=== PATIENT | male | born 1965 | race Caucasian/White ===

== ENCOUNTER 2017-03-07 11:39 | Inpatient (IN) | payer BC ==
[~2017-03-07] VITALS: Ht 193 cm; Wt 137.5 kg
[2017-03-07] VITALS (9 sets, daily range): BP systolic 157–205; BP diastolic 90–97; PULSE 76–96; RESP 16–22; TEMP 97.9–98.9; O2SAT 93–100
[2017-03-07] MEDS ORDERED: SODIUM CHLOR 0.9% 1000 ML INJ 1,000 ML IV SCH ×2 (11:47→15:30)
[2017-03-07] MEDS ORDERED: LISI20TA PO (11:56)
[2017-03-07] MEDS ORDERED: MORPHINE SULFATE 8 MG/ML INJ ONE (11:58)
[2017-03-07] MEDS ORDERED: NEOSTIGMINE 3 MG/3 ML SYR IV ONE (12:00)
[2017-03-07] MEDS ORDERED: MORPHINE SULFATE 4 MG/ML INJ IV ONE (12:00)
[2017-03-07] MEDS ORDERED: DIPHTH/TETANUS/ACEL PERTUSSIS (BOOSTER) 0.5 ML VIAL/PFS IM ONE (12:00)
[2017-03-07] MEDS ORDERED: LACTATED RINGER'S 1000 ML INJ 1,000 ML IV ONE (12:00)
[2017-03-07] MEDS ORDERED: ONDANSETRON HCL 4 MG/2 ML VIAL IVP ONE (12:00)
[2017-03-07] MEDS ORDERED: PROPOFOL 200 MG/20 ML AMP IV ONE ×3 (12:00→12:45)
[2017-03-07] MEDS ORDERED: ONDANSETRON HCL 4 MG/2 ML VIAL IV PUSH ONE (12:00)
[2017-03-07] MEDS ORDERED: ceFAZolin 2 GM PREMIX 50 ML IV ONE (12:00)
[2017-03-07 12:05] LABS: AUTOMATED NEUTROPHIL # 5.6 TH/MM3 (1.8-7.7); BASOPHIL # 0.1 TH/MM3 (0-0.2); BASOPHIL % 0.9 % (0.0-2.0); EOSINOPHIL # 0.1 TH/MM3 (0-0.4); EOSINOPHIL % 0.8 % (0.0-4.0); HEMATOCRIT 44.2 % (39.0-51.0); HEMO FLAGS DIFF FINAL; LYMPH % 31.9 % (9.0-44.0); LYMPHOCYTE # 3.1 TH/MM3 (1.0-4.8); MEAN CELL VOLUME 91.8 FL (80.0-100.0); MEAN CORPUSCULAR HEMOGLOBIN 32.2 PG (27.0-34.0); MEAN CORPUSCULAR HGB CONC 35.1 % (32.0-36.0); MONO % 8.8 % (0.0-8.0); NEUT % 57.6 % (16.0-70.0); PLATELET COUNT 205 TH/MM3 (150-450); RED BLOOD COUNT 4.82 MIL/MM3 (4.50-5.90); RED CELL DISTRIBUTION WIDTH 13.3 % (11.6-17.2); WHITE BLOOD COUNT 9.8 TH/MM3 (4.0-11.0)
[2017-03-07 12:12] LABS: APTT (PATIENT) 21.6 SEC (24.3-30.1); PROTHROMBIN TIME - PATIENT 11.4 SEC (9.8-11.6)
[2017-03-07 12:28] LABS: I-STAT POTASSIUM 3.7 MMOL/L (3.5-4.9)
[2017-03-07] MEDS ORDERED: HYDROmorphone HCL PF 1 MG/ML VIAL IV PUSH ONE (12:30)
--- NOTE | 2017-03-07 12:38 | PD ---
HPI Chief Complaint: Fall Time Seen by Provider: 12:27 Travel History International Travel<30 days: No Contact w/Intl Traveler<30days: No Traveled to known affect area: No History of Present Illness HPI 51-year-old male that presents to the ED for evaluation of fall from a 12 foot ladder. Patient was brought here by ambulance. 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 Per patient she does not know why he landed on but he does have what appears to be an open fracture to his left proximal tib-fib as well as pain to his right chest and right shoulder. He was brought here by ambulance for evaluation of this. No LOC. Patient landed on tile. Patient had normal vitals and GCS of 15. She was given IV morphine and was put on the c-collar as well as some backboard and a splint for the left leg by ambulance before coming. Injury occurred less than an hour ago. Patient has no allergies to medication but first thing ago to see the patient he tells me that he does not want any blood products secondary to roman catholic beliefs. He states that his pain is severe especially on the left leg which is 10 out of 10. Even with morphine. Patient does have severe pain on the right chest as well as the right shoulder. He does have a history of high blood pressure. No other injuries reported. Patient does have a significant open fracture on the left leg as well as abrasions on the right leg as well as on the arms noted. PFSH Past Medical History Tetanus Vaccination: Unknown Influenza Vaccination: No Past Surgical History Tonsillectomy: Yes Social History Alcohol Use: Yes (moderate) Tobacco Use: No Substance Use: No Allergies-Medications (Allergen,Severity, Reaction): Uncoded Allergies: no blood (Allergy, Severe, no blood products, 03/07/17) Reported Meds & Prescriptions Reported Meds & Active Scripts Active Reported Lisinopril-Hctz 20-12.5 Mg Tab 1 Tab PO DAILY Review of Systems Except as stated in HPI: all other systems reviewed are Neg Physical Exam Narrative GENERAL: SKIN: Warm and dry. HEAD: Atraumatic. Normocephalic. EYES: Pupils equal and round. No scleral icterus. No injection or drainage. ENT: No nasal bleeding or discharge. Mucous membranes pink and moist. Tongue is midline. No uvula deviation. NECK: Trachea midline. No JVD. CARDIOVASCULAR: Regular rate and rhythm. No murmurs, S3, S4. RESPIRATORY: No accessory muscle use. Clear to auscultation. Breath sounds equal bilaterally. GASTROINTESTINAL: Abdomen soft, non-tender, nondistended. Hepatic and splenic margins not palpable. MUSCULOSKELETAL: Extremities without clubbing, cyanosis, or edema. No obvious deformities. Full range of motion of the left upper and right lower extremities bilaterally. 2+ pulses bilaterally. Patient does appear to have significant open fracture on the proximal aspect of the left knee. Bone is exposed. Minimal bleeding noted. Open wound is about 10 cm x 4 cm. Very tender to touch. Patient cannot extend the left leg without severe pain. Patient also has pain with range of motion of the right shoulder especially with abduction. Patient has reproducible pain on the right rib cage just below the nipple. No obvious bruising or deformity noted in this area. No lumbar, thoracic, cervical spine tenderness to palpation. No scapular pain noted. No pelvic bone pain. Patient was seen with a backboard and cervical collar. Was removed by me and my attending. My attending Dr. Campbell evaluated the patient with me at the same time. NEUROLOGICAL: Awake and alert. No obvious cranial nerve deficits. Motor grossly within normal limits. Five out of 5 muscle strength in the arms and legs. Normal speech. PSYCHIATRIC: Appropriate mood and affect; insight and judgment normal. Data Data Last Documented VS Vital Signs Date Time Temp Pulse Resp B/P Pulse Ox O2 Delivery O2 Flow Rate FiO2 03/07/17 14:15 88 14 164/97 99 03/07/17 13:40 Nasal Cannula 2 03/07/17 13:40 98.1 Orders Tibia/Fibula (Ap/Lat) (03/07/17 11:47) I-Stat Profile (03/07/17 11:47) I-Stat Creatinine (03/07/17 11:47) Complete Blood Count With Diff (03/07/17 11:47) Prothrombin Time / Inr (Pt) (03/07/17 11:47) Act Partial Throm Time (Ptt) (03/07/17 11:47) Type And Screen (03/07/17 11:47) Ct Brain W/O Iv Contrast(Rout) (03/07/17 11:47) Ct Cerv Spine W/O Contrast (03/07/17 11:47) Iv Access Insert/Monitor (03/07/17 11:47) Ecg Monitoring (03/07/17 11:47) Oximetry (03/07/17 11:47) Oxygen Administration (03/07/17 11:47) Cefazolin 2 Gm Premix (Ancef 2 Gm Premix (03/07/17 12:00) Morphine Inj (Morphine Inj) (03/07/17 12:00) Ondansetron Inj (Zofran Inj) (03/07/17 12:00) Nrsr-Khu-Xkzemk (Booster) Inj (Boostrix (03/07/17 12:00) Sodium Chlor 0.9% 1000 Ml Inj (Ns 1000 M (03/07/17 11:47) Ct Abd/Pel W Iv Contrast(Rout) (03/07/17 11:53) Ct Thorax/ Chest W Iv Contrast (03/07/17 11:54) Morphine Inj (Morphine Inj) (03/07/17 11:58) Hydromorphone Pf Inj (Dilaudid Pf Inj) (03/07/17 12:30) Shoulder, One View (03/07/17 ) Propofol 200 Mg/20 Ml Inj (Diprivan 200 (03/07/17 12:45) Splint Or Brace Apply/Monitor (03/07/17 12:39) Propofol 200 Mg/20 Ml Inj (Diprivan 200 (03/07/17 12:45) Tibia/Fibula (Ap/Lat) (03/07/17 ) Consult Orthopedic (03/07/17 ) NPO (03/07/17 13:12) Iohexol 350 Inj (Omnipaque 350 Inj) (03/07/17 13:31) Gentamicin Inj (Gentamicin Inj) (03/07/17 13:56) (Hub Use Only)Inp Phy Cons/Ref (03/07/17 14:28) Admit Order (Ed Use Only) (03/07/17 14:35) Labs Laboratory Tests Test 03/07/17 11:57 White Blood Count 9.8 TH/MM3 Red Blood Count 4.82 MIL/MM3 Hemoglobin 15.5 GM/DL Bedside Hemoglobin 15.3 G/DL Hematocrit 44.2 % Bedside Hematocrit 45.0 % Mean Corpuscular Volume 91.8 FL Mean Corpuscular Hemoglobin 32.2 PG Mean Corpuscular Hemoglobin 35.1 % Concent Red Cell Distribution Width 13.3 % Platelet Count 205 TH/MM3 Mean Platelet Volume 9.8 FL Neutrophils (%) (Auto) 57.6 % Lymphocytes (%) (Auto) 31.9 % Monocytes (%) (Auto) 8.8 % Eosinophils (%) (Auto) 0.8 % Basophils (%) (Auto) 0.9 % Neutrophils # (Auto) 5.6 TH/MM3 Lymphocytes # (Auto) 3.1 TH/MM3 Monocytes # (Auto) 0.9 TH/MM3 Eosinophils # (Auto) 0.1 TH/MM3 Basophils # (Auto) 0.1 TH/MM3 CBC Comment DIFF FINAL Differential Comment Prothrombin Time 11.4 SEC Prothromb Time International 1.0 RATIO Ratio Activated Partial 21.6 SEC Thromboplast Time Bedside Sodium 140 MMOL/L Bedside Potassium 3.7 MMOL/L Bedside Chloride 105 MMOL/L Bedside Blood Urea Nitrogen 16 MG/DL Bedside Creatinine 1.0 MG/DL Bedside Glucose 119 MG/DL Blood Type B POSITIVE Antibody Screen NEGATIVE MDM Medical Decision Making Medical Screen Exam Complete: Yes Emergency Medical Condition: Yes Medical Record Reviewed: Yes Interpretation(s) CBC & BMP Diagram 03/07/17 11:[address] 03/07/17 1154 Signed Impressions: Service Date/Time: Tuesday, March 07, 2017 13:20 - CONCLUSION: Left upper lobe nodule, repeat noncontrast chest CT is suggested in 6 months as a conservative follow up. Sandra Zamora MD Abdomen/Pelvis CT 03/07/17 1153 Signed Impressions: Service Date/Time: Tuesday, March 07, 2017 13:17 - CONCLUSION: Essentially unremarkable study. Sandra Zamora MD Tibia/Fibula X-Ray 03/07/17 1147 Signed Impressions: Service Date/Time: Tuesday, March 07, 2017 12:00 - CONCLUSION: Proximal fibula and tibia fractures. Sandra Zamora MD Head CT 03/07/17 1147 Signed Impressions: Service Date/Time: Tuesday, March 07, 2017 13:07 - CONCLUSION: No acute disease. No evidence of acute hemorrhage, edema or contusion. Unremarkable evaluation of the brain. Shyam Rey MD Cervical Spine CT 03/07/17 1147 Signed Impressions: Service Date/Time: Tuesday, March 07, 2017 13:12 - CONCLUSION: Slight neuroforaminal compromise left C5-C6, right C6-C7. K. Eligio Zamora MD Shoulder X-Ray 03/07/17 0000 Signed Impressions: Service Date/Time: Tuesday, March 07, 2017 12:12 - CONCLUSION: No acute disease. Shyam Rey MD Differential Diagnosis Trauma versus open fracture versus takes for fracture versus chest contusion versus head injury versus fall versus laceration versus abrasion versus contusion Narrative Course 51-year-old male that presents to the ED for evaluation of fall. Patient was properly examined and was found to have signs and symptoms very consistent what appears to be fall from 12 feet with open fracture on the left tib-fib. My attending Dr. Campbell and I evaluated the patient at the same time. She was made aware of all findings and she recommended doing trauma work up but no trauma alert as patient is stable at this time. She recommends multiple scans as well as labs and imaging. Labs and imaging were ordered. My attending took over case and spoke with Dr Browne for trauma and Dr Cruz for ortho. Dr Browne recommends admission to medicine. Dr Casiano consulted by my attending and agrees to admission. Diagnosis Primary Impression: Tibia/fibula fracture Qualified Code: S82.202C - Tibia/fibula fracture, left, open type III, initial encounter Additional Impressions: Fall Qualified Code: W19.XXXA - Fall, initial encounter Contusion of shoulder, right Chest wall contusion Qualified Code: S20.211A - Chest wall contusion, right, initial encounter Admitting Information Admitting Physician Requests: Admit Ajay Castrejon Mar 07, 2017 12:37
--- NOTE | 2017-03-07 12:55 | RADRPT ---
EXAM DATE/TIME: 03/07/2017 12:12 [facility] COMPARISON: No previous studies available for comparison. INDICATIONS : Right shoulder pain, Post fall off ladder MEDICAL HISTORY : None. SURGICAL HISTORY : None. ENCOUNTER: Initial ACUITY: 1 day PAIN SCORE: 10/10 LOCATION: Right upper extremity FINDINGS: Examination of the right shoulder demonstrates no evidence of fracture or dislocation.. Bone mineral ization is normal. The acromioclavicular joint is intact. No foreign body is identified. CONCLUSION: No acute disease. Shyam Rey MD on March 07, 2017 at 12:54 Board Certified Radiologist. This report was verified electronically.
--- NOTE | 2017-03-07 13:20 | RADRPT ---
EXAM DATE/TIME: 03/07/2017 12:00 [facility] COMPARISON: No previous studies available for comparison. INDICATIONS : Left tibia/fibula pain and open wound. Fell from a ladder. MEDICAL HISTORY : Unobtainable. SURGICAL HISTORY : Unobtainable. ENCOUNTER: Initial ACUITY: 1 day PAIN SCORE: 10/10 LOCATION: Left tibia/fibula FINDINGS: There is a complex fracture involving the tibia proximally extending from the metaphysis through the tibia plateau intra-articular with gas bubbles within the joint space. There is also a fracture of pr oximal fibula. CONCLUSION: Proximal fibula and tibia fractures. Sandra Zamora MD on March 07, 2017 at 13:17 Board Certified Radiologist. This report was verified electronically.
[2017-03-07] MEDS ORDERED: IOHEXOL 350 MG/ML 10 ML VIAL (for RAD DIAG) IV ONE (13:31)
--- NOTE | 2017-03-07 13:32 | RADRPT ---
EXAM DATE/TIME: 03/07/2017 13:07 [facility] COMPARISON: No previous studies available for comparison. INDICATIONS : Trauma, fall from a twelve foot ladder today. RADIATION DOSE: 56.35 CTDIvol (mGy) MEDICAL HISTORY : None SURGICAL HISTORY : Tonsillectomy. ENCOUNTER: Initial ACUITY: 1 day PAIN SCALE: 3/10 LOCATION: Bilateral head TECHNIQUE: Multiple contiguous axial images were obtained of the head. Using automated exposure control and adj ustment of the mA and/or kV according to patient size, radiation dose was kept as low as reasonably a chievable to obtain optimal diagnostic quality images. DICOM format image data is available electro nically for review and comparison. FINDINGS: CEREBRUM: The ventricles are normal for age. No evidence of midline shift, mass lesion, hemorrhage or acute in farction. No extra-axial fluid collections are seen. POSTERIOR FOSSA: The cerebellum and brainstem are intact. The 4th ventricle is midline. The cerebellopontine angle i s unremarkable. EXTRACRANIAL: The visualized portion of the orbits is intact. SKULL: The calvaria is intact. No evidence of skull fracture. CONCLUSION: No acute disease. No evidence of acute hemorrhage, edema or contusion. Unremarkable evaluation of the brain. Shyam Rey MD on March 07, 2017 at 13:28 Board Certified Radiologist. This report was verified electronically.
[2017-03-07] MEDS ORDERED: GENTAMICIN SULFATE 80 MG/2 ML VIAL ONE ×3 (13:56→16:04)
--- NOTE | 2017-03-07 14:03 | RADRPT ---
EXAM DATE/TIME: 03/07/2017 13:12 [facility] COMPARISON: No previous studies available for comparison. INDICATIONS : Trauma, fall from a twelve foot ladder today. RADIATION DOSE: 46.86 CTDIvol (mGy) MEDICAL HISTORY : None SURGICAL HISTORY : Tonsillectomy. ENCOUNTER: Initial ACUITY: 1 day PAIN SCALE: 7/10 LOCATION: Bilateral neck TECHNIQUE: Volumetric scanning of the cervical spine was performed. Multiplanar reconstructions in the sagittal, coronal and oblique axial planes were performed. Using automated exposure control and adjustment o f the mA and/or kV according to patient size, radiation dose was kept as low as reasonably achievable to obtain optimal diagnostic quality images. DICOM format image data is available electronically f or review and comparison. FINDINGS: No evidence of subluxation. No definite fracture is seen for technique. C2-C3: There is no evidence for any significant compromise to the thecal sac, or the exiting nerve roots. N o appreciable thecal sac stenosis is seen. The neural foramina and lateral recess appear patent bila terally. C3-C4: There is no evidence for any significant compromise to the thecal sac, or the exiting nerve roots. N o appreciable thecal sac stenosis is seen. The neural foramina and lateral recess appear patent bila terally. C4-C5: Slight degenarative changes are seen within the disc space and facets. There is no evidence for any s ignificant compromise to the thecal sac, or the exiting nerve roots. No appreciable thecal sac steno sis is seen. The neural foramina and lateral recess appear patent bilaterally. C5-C6: Moderate degenarative changes are seen within the disc space and facets. There is slight neural sarah romie compromise on the left due to asymmetrical bulging disc and hypertrophic changes. There is bulgin g disc and hypertrophic change protruding into bilateral lateral recess without any significant compr omise to the exiting nerve roots. Slight bulging disc and hypertrophic changes are seen with indentat ion on the thecal sac and no significant compromise to the thecal sac. C6-C7: There is bulging disc and hypertrophic change protruding into bilateral lateral recess without any si gnificant compromise to the exiting nerve roots. There is slight neural foramina compromise on the ri ght due to asymmetrical bulging disc and hypertrophic changes. Moderate degenarative changes are seen within the disc space and facets. Slight bulging disc and hypertrophic changes are seen with indenta tion on the thecal sac and no significant compromise to the thecal sac. C7-T1: There is no evidence for any significant compromise to the thecal sac, or the exiting nerve roots. N o appreciable thecal sac stenosis is seen. The neural foramina and lateral recess appear patent bila terally. CONCLUSION: Slight neuroforaminal compromise left C5-C6, right C6-C7. K. Eligio Zamora MD on March 07, 2017 at 13:56 Board Certified Radiologist. This report was verified electronically.
--- NOTE | 2017-03-07 14:07 | RADRPT ---
EXAM DATE/TIME: 03/07/2017 13:17 [facility] COMPARISON: No previous studies available for comparison. INDICATIONS : Trauma, fall from a twelve foot ladder today. IV CONTRAST: 95 cc Omnipaque 350 (iohexol) IV ; Cumulative dose for multiple exams. ORAL CONTRAST: No oral contrast ingested. RADIATION DOSE: 14.45 CTDIvol (mGy) ; Combined studies - Thorax/Abdomen/Pelvis MEDICAL HISTORY : None SURGICAL HISTORY : Tonsillectomy. ENCOUNTER: Initial ACUITY: 1 day PAIN SCALE: 0/10 LOCATION: abdomen TECHNIQUE: Volumetric scanning of the abdomen and pelvis was performed. Using automated exposure control and ad justment of the mA and/or kV according to patient size, radiation dose was kept as low as reasonably achievable to obtain optimal diagnostic quality images. DICOM format image data is available electro nically for review and comparison. FINDINGS: CT Abdomen: The liver, spleen, pancreas, kidneys, adrenals are unremarkable. There is no evidence for any appreciable pathological adenopathy, free fluid, or bowel obstruction. CT pelvis: There is no evidence for mass, abscess formation, or any significant adenopathy within the pelvis. The prostate gland is inhomogeneous and measures 3.5 x 3.8 cm in AP and transverse diameters and nonspecific. There are scattered diverticuli mainly in the sigmoid colon without definite signs of diverticulitis. No definite fracture is seen for technique. CONCLUSION: Essentially unremarkable study. Sandra Zamora MD on March 07, 2017 at 14:02 Board Certified Radiologist. This report was verified electronically.
--- NOTE | 2017-03-07 14:11 | RADRPT ---
EXAM DATE/TIME: 03/07/2017 13:20 [facility] COMPARISON: No previous studies available for comparison. INDICATIONS : Fall from ladder IV CONTRAST: 95 cc Omnipaque 350 (iohexol) IV ; Cumulative dose for multiple exams. RADIATION DOSE: 14.54 CTDIvol (mGy) ; Combined studies - Thorax/Abdomen/Pelvis MEDICAL HISTORY : None SURGICAL HISTORY : None. ENCOUNTER: Initial ACUITY: 1 day PAIN SCALE: 0/10 LOCATION: chest TECHNIQUE: Volumetric scanning of the chest was performed. Using automated exposure control and adjustment of t he mA and/or kV according to patient size, radiation dose was kept as low as reasonably achievable to obtain optimal diagnostic quality images. DICOM format image data is available electronically for review and comparison. Follow-up recommendations for incidentally detected pulmonary nodules are based at a minimum on nodul e size and patient risk factors according to Fleischner Society Guidelines. FINDINGS: Approximately 6 mm left upper lobe nodule is present in the apex without demonstrable calcifications. No definite fracture is seen for technique. No definite pneumothorax is seen for technique.There is no pleural effusion. No appreciable pathological adenopathy is seen within the mediastinum. CONCLUSION: Left upper lobe nodule, repeat noncontrast chest CT is suggested in 6 months as a con servative follow up. Sandra Zamora MD on March 07, 2017 at 14:06 Board Certified Radiologist. This report was verified electronically.
--- NOTE | 2017-03-07 14:29 | RADRPT ---
EXAM DATE/TIME: 03/07/2017 13:31 [facility] COMPARISON: No previous studies available for comparison. INDICATIONS : Post reduction left tibia/fibula. MEDICAL HISTORY : None. SURGICAL HISTORY : None. ENCOUNTER: Initial ACUITY: 1 day PAIN SCORE: 10/10 LOCATION: Left tibia/fibula FINDINGS: Intra-articular fracture is seen involving the lateral tibial plateau and mid tibial plateau through the anterior tibial spine. The fracture fragments are slightly displaced, however grossly aligned. Th ere is also fracture of the proximal fibula. CONCLUSION: Gross anatomical alignment of intra-articular tibial fracture and there is also a fracture of proxima l fibula. Sandra Zamora MD on March 07, 2017 at 14:27 Board Certified Radiologist. This report was verified electronically.
--- NOTE | 2017-03-07 14:41 | PD ---
Data Data Last Documented VS Vital Signs Date Time Temp Pulse Resp B/P Pulse Ox O2 Delivery O2 Flow Rate FiO2 03/07/17 14:15 88 14 164/97 99 03/07/17 13:40 Nasal Cannula 2 03/07/17 13:40 98.1 Orders Tibia/Fibula (Ap/Lat) (03/07/17 11:47) I-Stat Profile (03/07/17 11:47) I-Stat Creatinine (03/07/17 11:47) Complete Blood Count With Diff (03/07/17 11:47) Prothrombin Time / Inr (Pt) (03/07/17 11:47) Act Partial Throm Time (Ptt) (03/07/17 11:47) Type And Screen (03/07/17 11:47) Ct Brain W/O Iv Contrast(Rout) (03/07/17 11:47) Ct Cerv Spine W/O Contrast (03/07/17 11:47) Iv Access Insert/Monitor (03/07/17 11:47) Ecg Monitoring (03/07/17 11:47) Oximetry (03/07/17 11:47) Oxygen Administration (03/07/17 11:47) Cefazolin 2 Gm Premix (Ancef 2 Gm Premix (03/07/17 12:00) Morphine Inj (Morphine Inj) (03/07/17 12:00) Ondansetron Inj (Zofran Inj) (03/07/17 12:00) Nlit-Dxw-Xtlfym (Booster) Inj (Boostrix (03/07/17 12:00) Sodium Chlor 0.9% 1000 Ml Inj (Ns 1000 M (03/07/17 11:47) Ct Abd/Pel W Iv Contrast(Rout) (03/07/17 11:53) Ct Thorax/ Chest W Iv Contrast (03/07/17 11:54) Morphine Inj (Morphine Inj) (03/07/17 11:58) Hydromorphone Pf Inj (Dilaudid Pf Inj) (03/07/17 12:30) Shoulder, One View (03/07/17 ) Propofol 200 Mg/20 Ml Inj (Diprivan 200 (03/07/17 12:45) Splint Or Brace Apply/Monitor (03/07/17 12:39) Propofol 200 Mg/20 Ml Inj (Diprivan 200 (03/07/17 12:45) Tibia/Fibula (Ap/Lat) (03/07/17 ) Consult Orthopedic (03/07/17 ) NPO (03/07/17 13:12) Iohexol 350 Inj (Omnipaque 350 Inj) (03/07/17 13:31) Gentamicin Inj (Gentamicin Inj) (03/07/17 13:56) (Hub Use Only)Inp Phy Cons/Ref (03/07/17 14:28) Admit Order (Ed Use Only) (03/07/17 14:35) Labs Laboratory Tests Test 03/07/17 11:57 White Blood Count 9.8 TH/MM3 Red Blood Count 4.82 MIL/MM3 Hemoglobin 15.5 GM/DL Bedside Hemoglobin 15.3 G/DL Hematocrit 44.2 % Bedside Hematocrit 45.0 % Mean Corpuscular Volume 91.8 FL Mean Corpuscular Hemoglobin 32.2 PG Mean Corpuscular Hemoglobin 35.1 % Concent Red Cell Distribution Width 13.3 % Platelet Count 205 TH/MM3 Mean Platelet Volume 9.8 FL Neutrophils (%) (Auto) 57.6 % Lymphocytes (%) (Auto) 31.9 % Monocytes (%) (Auto) 8.8 % Eosinophils (%) (Auto) 0.8 % Basophils (%) (Auto) 0.9 % Neutrophils # (Auto) 5.6 TH/MM3 Lymphocytes # (Auto) 3.1 TH/MM3 Monocytes # (Auto) 0.9 TH/MM3 Eosinophils # (Auto) 0.1 TH/MM3 Basophils # (Auto) 0.1 TH/MM3 CBC Comment DIFF FINAL Differential Comment Prothrombin Time 11.4 SEC Prothromb Time International 1.0 RATIO Ratio Activated Partial 21.6 SEC Thromboplast Time Bedside Sodium 140 MMOL/L Bedside Potassium 3.7 MMOL/L Bedside Chloride 105 MMOL/L Bedside Blood Urea Nitrogen 16 MG/DL Bedside Creatinine 1.0 MG/DL Bedside Glucose 119 MG/DL Blood Type B POSITIVE Antibody Screen NEGATIVE [facility] Medical Record Reviewed: Yes Supervised Visit with RIKKI: Yes Interpretation(s) Vital Signs Date Time Temp Pulse Resp B/P Pulse Ox O2 Delivery O2 Flow Rate FiO2 03/07/17 14:15 88 14 164/97 99 03/07/17 14:00 84 14 176/91 100 03/07/17 13:40 Nasal Cannula 2 03/07/17 13:40 98.1 80 14 172/98 98 03/07/17 13:17 78 18 162/93 98 Nasal Cannula 3 03/07/17 13:09 97.9 82 18 157/90 100 Nasal Cannula 3 03/07/17 13:00 76 18 170/95 99 Nasal Cannula 3 03/07/17 12:50 80 22 201/95 100 Nasal Cannula 3 03/07/17 12:49 99 3.00 03/07/17 12:49 99 03/07/17 12:35 96 20 205/97 100 Nasal Cannula 3 03/07/17 12:00 81 22 194/95 96 Room Air Laboratory Tests Test 03/07/17 11:57 White Blood Count 9.8 TH/MM3 (4.0-11.0) Red Blood Count 4.82 MIL/MM3 (4.50-5.90) Hemoglobin 15.5 GM/DL (13.0-17.0) Bedside Hemoglobin 15.3 G/DL (12.0-17.0) Hematocrit 44.2 % (39.0-51.0) Bedside Hematocrit 45.0 % (38.0-51.0) Mean Corpuscular Volume 91.8 FL (80.0-100.0) Mean Corpuscular Hemoglobin 32.2 PG (27.0-34.0) Mean Corpuscular Hemoglobin 35.1 % Concent (32.0-36.0) Red Cell Distribution Width 13.3 % (11.6-17.2) Platelet Count 205 TH/MM3 (150-450) Mean Platelet Volume 9.8 FL (7.0-11.0) Neutrophils (%) (Auto) 57.6 % (16.0-70.0) Lymphocytes (%) (Auto) 31.9 % (9.0-44.0) Monocytes (%) (Auto) 8.8 % (0.0-8.0) Eosinophils (%) (Auto) 0.8 % (0.0-4.0) Basophils (%) (Auto) 0.9 % (0.0-2.0) Neutrophils # (Auto) 5.6 TH/MM3 (1.8-7.7) Lymphocytes # (Auto) 3.1 TH/MM3 (1.0-4.8) Monocytes # (Auto) 0.9 TH/MM3 (0-0.9) Eosinophils # (Auto) 0.1 TH/MM3 (0-0.4) Basophils # (Auto) 0.1 TH/MM3 (0-0.2) CBC Comment DIFF FINAL Differential Comment Prothrombin Time 11.4 SEC (9.8-11.6) Prothromb Time International 1.0 RATIO Ratio Activated Partial 21.6 SEC Thromboplast Time (24.3-30.1) Bedside Sodium 140 MMOL/L (138-146) Bedside Potassium 3.7 MMOL/L (3.5-4.9) Bedside Chloride 105 MMOL/L (98-109) Bedside Blood Urea Nitrogen 16 MG/DL (8-26) Bedside Creatinine 1.0 MG/DL (0.8-1.3) Bedside Glucose 119 MG/DL (60-95) Blood Type B POSITIVE Antibody Screen NEGATIVE Last Impressions Chest CT 03/07/17 1154 Signed Impressions: Service Date/Time: Tuesday, March 07, 2017 13:20 - CONCLUSION: Left upper lobe nodule, repeat noncontrast chest CT is suggested in 6 months as a conservative follow up. Sandra Zamora MD Abdomen/Pelvis CT 03/07/17 1153 Signed Impressions: Service Date/Time: Tuesday, March 07, 2017 13:17 - CONCLUSION: Essentially unremarkable study. Sandra Zamora MD Tibia/Fibula X-Ray 03/07/17 1147 Signed Impressions: Service Date/Time: Tuesday, March 07, 2017 12:00 - CONCLUSION: Proximal fibula and tibia fractures. Sandra Zamora MD Head CT 03/07/17 1147 Signed Impressions: Service Date/Time: Tuesday, March 07, 2017 13:07 - CONCLUSION: No acute disease. No evidence of acute hemorrhage, edema or contusion. Unremarkable evaluation of the brain. Shyam Rey MD Cervical Spine CT 03/07/17 1147 Signed Impressions: Service Date/Time: Tuesday, March 07, 2017 13:12 - CONCLUSION: Slight neuroforaminal compromise left C5-C6, right C6-C7. Sandra Zamora MD Tibia/Fibula X-Ray 03/07/17 0000 Signed Impressions: Service Date/Time: Tuesday, March 07, 2017 13:31 - CONCLUSION: Gross anatomical alignment of intra-articular tibial fracture and there is also a fracture of proximal fibula. Sandra Zamora MD Shoulder X-Ray 03/07/17 0000 Signed Impressions: Service Date/Time: Tuesday, March 07, 2017 12:12 - CONCLUSION: No acute disease. Shyam Rey MD Narrative Course I, Dr. Campbell, have reviewed the advance practice practitioner's documentation and am in agreement, met with the patient face to face, made the diagnosis, and the medical decision making was done by me. *My assessment and Findings: Open left sided tib-fib fracture. Patient is a 51-year-old male who presents to emergency room after he fell 12 foot from a ladder. Patient reports that the ladder slid against the wall causing him to fall on the ground and landing on his left side. He presents to emergency room with left-sided open tib-fib fracture. Patient denies any trauma to the head or neck, denies any loss of consciousness on scene. Patient reports no allergies to medications, reports no medical problems. Patient did arrive to ER on backboard with collar in place. GCS 15. Patient was given ancef and tetanus. He did have trauma scans obtained after he was stabilized. Conscious sedation was performed to utilized to reduce left tib-fib and to irrigate wound. Call was made to Dr. Cruz as patient does have open tib/fib fx. Patient was admitted to Dr. Peterson's service Critical Care Narrative Aggregate critical care time was 60 minutes. Time to perform other separately billable procedures was not included in the critical care time. My time did not include minutes spent treating any other patients simultaneously or on activities that did not directly contribute to the patient's treatment. The services I provided to this patient were to treat and/or prevent clinically significant deterioration that could result in: , decompensation, deterioration I provided critical care services requiring my management, as noted below: Chart data review, documentation time, medication orders and management, vital sign assessments/reviewing monitor data, ordering and reviewing lab tests, ordering and interpreting/reviewing x-rays and diagnostic studies, care of the patient and discussion of the patient with the admitting physicians. Procedures Procedure Narrative After the risks and benefits were discussed the following procedure was performed: MODERATE SEDATION: The patient was placed on a science consultant and pulse oximetry. An ambu bag and suction was immediately available at bedside. The patient was monitored by the nurse. Oxygen saturation , heart rate and blood pressure were monitored. Procedural sedation was acheived using 100mg of propofol . The patient was observed until awake and alert. Procedural Sedation time in attendance was 25 minutes. Left tib/fib reduction: After informed consent obtained, risks and benefits were discussed with patient. After patient was sedated, left leg proximal tib/fib reduced using traction. Wound was irrigated copiously with betadine and normal saline. Splint placed Physician Communication Physician Communication case reviewed with Dr. Zaman who accepts pt to service Dr. Cruz will bring patient to the OR for his open tib/fib fx Diagnosis Primary Impression: Tibia/fibula fracture Qualified Code: S82.202C - Tibia/fibula fracture, left, open type III, initial encounter Admitting Information Admitting Physician Requests: Neelam Bowers DO Mar 07, 2017 14:41
[2017-03-07] MEDS ORDERED: ceFAZolin INJ 1,000 MG VIAL ONE (15:10)
[2017-03-07] MEDS ORDERED: NALOXONE HCL 0.4 MG/ML AMP IV PRN ×2 (15:15→19:45)
[2017-03-07] MEDS ORDERED: ACETAMINOPHEN 325 MG TAB PO PRN ×2 (15:15→19:45)
[2017-03-07] MEDS ORDERED: MAGNESIUM HYDROXIDE SUSP 30 ML CUP PO PRN ×2 (15:15→19:45)
[2017-03-07] MEDS ORDERED: SENNOSIDES 8.6 MG TAB PO PRN ×2 (15:15→19:45)
[2017-03-07] MEDS ORDERED: LACTULOSE SYRUP 20 GM/30 ML CUP PO PRN ×2 (15:15→19:45)
[2017-03-07] MEDS ORDERED: BISACODYL 10 MG SUPP RECTAL PRN ×2 (15:15→19:45)
[2017-03-07] MEDS ORDERED: SODIUM CHLORIDE 0.9% FLUSH 10 ML FLUSH IV FLUSH PRN ×2 (15:15→19:45)
[2017-03-07] MEDS ORDERED: ONDANSETRON HCL 4 MG/2 ML VIAL IVP PRN ×2 (15:15→19:45)
--- NOTE | 2017-03-07 15:18 | HHI.HP ---
[facility] Service [place] [facility] Primary Care Physician Hebert Reddy MD Admission Diagnosis Open Tib/Fib Fracture Diagnoses: Travel History International Travel<30 Days: No Contact w/Intl Traveler <30 Da: No Traveled to Known Affected Are: No Past Family Social History Allergies: Uncoded Allergies: no blood (Allergy, Severe, no blood products, 03/07/17) Physical Exam Vital Signs Vital Signs Date Time Temp Pulse Resp B/P Pulse Ox O2 Delivery O2 Flow Rate FiO2 03/07/17 15:03 95 14 155/94 99 03/07/17 14:15 88 14 164/97 99 03/07/17 14:00 84 14 176/91 100 03/07/17 13:40 Nasal Cannula 2 03/07/17 13:40 98.1 80 14 172/98 98 03/07/17 13:17 78 18 162/93 98 Nasal Cannula 3 03/07/17 13:09 97.9 82 18 157/90 100 Nasal Cannula 3 03/07/17 13:00 76 18 170/95 99 Nasal Cannula 3 03/07/17 12:50 80 22 201/95 100 Nasal Cannula 3 03/07/17 12:35 96 20 205/97 100 Nasal Cannula 3 03/07/17 12:00 81 22 194/95 96 Room Air Physical Exam GENERAL: This is a well-nourished, well-developed patient, in no apparent distress. SKIN: No rashes, ecchymoses or lesions. Cool and dry. HEAD: Atraumatic. Normocephalic. No temporal or scalp tenderness. EYES: Pupils equal round and reactive. Extraocular motions intact. No scleral icterus. No injection or drainage. ENT: Nose without bleeding, purulent drainage or septal hematoma. Throat without erythema, tonsillar hypertrophy or exudate. Uvula midline. Airway patent. NECK: Trachea midline. No JVD or lymphadenopathy. Supple, nontender, no meningeal signs. CARDIOVASCULAR: Regular rate and rhythm without murmurs, gallops, or rubs. RESPIRATORY: Clear to auscultation. Breath sounds equal bilaterally. No wheezes , rales, or rhonchi. GASTROINTESTINAL: Abdomen soft, non-tender, nondistended. No hepato-splenomegaly , or palpable masses. No guarding. MUSCULOSKELETAL: Extremities without clubbing, cyanosis, or edema. No joint tenderness, effusion, or edema noted. No calf tenderness. Negative Homans sign bilaterally. NEUROLOGICAL: Awake and alert. Cranial nerves II through XII intact. Motor and sensory grossly within normal limits. Five out of 5 muscle strength in all muscle groups. Normal speech. Laboratory Laboratory Tests Test 03/07/17 11:57 White Blood Count 9.8 Red Blood Count 4.82 Hemoglobin 15.5 Bedside Hemoglobin 15.3 Hematocrit 44.2 Bedside Hematocrit 45.0 Mean Corpuscular Volume 91.8 Mean Corpuscular Hemoglobin 32.2 Mean Corpuscular Hemoglobin 35.1 Concent Red Cell Distribution Width 13.3 Platelet Count 205 Mean Platelet Volume 9.8 Neutrophils (%) (Auto) 57.6 Lymphocytes (%) (Auto) 31.9 Monocytes (%) (Auto) 8.8 Eosinophils (%) (Auto) 0.8 Basophils (%) (Auto) 0.9 Neutrophils # (Auto) 5.6 Lymphocytes # (Auto) 3.1 Monocytes # (Auto) 0.9 Eosinophils # (Auto) 0.1 Basophils # (Auto) 0.1 CBC Comment DIFF FINAL Differential Comment Prothrombin Time 11.4 Prothromb Time International 1.0 Ratio Activated Partial 21.6 Thromboplast Time Bedside Sodium 140 Bedside Potassium 3.7 Bedside Chloride 105 Bedside Blood Urea Nitrogen 16 Bedside Creatinine 1.0 Bedside Glucose 119 Blood Type B POSITIVE Antibody Screen NEGATIVE Result Diagram: 03/07/17 1157 Kalpesh Casiano MD Mar 07, 2017 15:18
[2017-03-07] MEDS ORDERED: HEPARIN SODIUM - SQ 10,000 UNITS/ML VIAL SQ SCH (16:00)
--- NOTE | 2017-03-07 19:11 | RADRPT ---
EXAM DATE/TIME: 03/07/2017 18:41 [facility] COMPARISON: TIBIA/FIBULA LEFT (AP/LAT), March 07, 2017, 13:31. INDICATIONS : Open reduction internal fixation of proximal tibia. MEDICAL HISTORY : None. SURGICAL HISTORY : None. ENCOUNTER: Subsequent ACUITY: 1 day PAIN SCORE: Non-responsive. LOCATION: Left knee. FINDINGS: Side plate and multiple screws traverse the tibia with excellent anatomical alignment of the fracture fragments. CONCLUSION: Intact postsurgical changes for technique. Sandra Zamora MD on March 07, 2017 at 19:09 Board Certified Radiologist. This report was verified electronically.
--- NOTE | 2017-03-07 19:28 | PD.CONS ---
cc: Adrien Cruz MD HPI Service Orthopedic Surgeons Consult Requested By ER staff Reason for Consult Open proximal tibia and fibula fractures Primary Care Physician Hebert Reddy MD Admission Diagnosis Open Tib/Fib Fracture Diagnoses: (1) Type III open fracture of proximal end of left tibia and fibula Chief Complaint: Left leg injury after fall from ladder History of Present Illness This 51-year-old male injured his left lower extremity while painting on a ladder. He states he ladder slipped and he went to the ground with it. He is unable to describe the exact mechanism of his left lower extremity injury. He had immediate pain, deformity and an open injury over the proximal lower leg. He presented to [facility]. X-rays revealed a fracture of the proximal tibia with an associated fibula fracture. There was significant displacement. He had a 10 cm wound over the fracture anteriorly consistent with a grade 3 open injury. Orthopedic consultation was therefore requested. Review of Systems Reviewed and well outlined in the chart Past Family Social History Past Medical History Past Medical History Tetanus Vaccination: Unknown Influenza Vaccination: No Hypertension Hyperlipidemia Past Surgical History Tonsillectomy: Yes Right wrist and knee surgery, ankle surgery Social History Alcohol Use: Yes (moderate) Tobacco Use: No Substance Use: No Allergies-Medications (Allergen,Severity, Reaction): Uncoded Allergies: no blood (Allergy, Severe, no blood products, 03/07/17) Reported Meds & Prescriptions Reported Meds & Active Scripts Active Reported Lisinopril-Hctz 20-12.5 Mg Tab 1 Tab PO DAILY Allergies: Uncoded Allergies: no blood (Allergy, Severe, no blood products, 03/07/17) Active Ordered Medications Current Medications Medications (Trade) Dose Ordered Sig/Jason Route Start Time Stop Time Status Last Admin (NS 1000 ml Inj) 1,000 ml @ 100 mls/hr Q10H IV 03/07/17 15:30 (NS Flush) 2 ml UNSCH PRN IV FLUSH 03/07/17 15:15 (NS Flush) 2 ml BID IV FLUSH 03/07/17 21:00 (Tylenol) 650 mg Q4H PRN PO 03/07/17 15:15 (Zofran Inj) 4 mg Q6H PRN IVP 03/07/17 15:15 (Heparin Inj) 5,000 units Q12H SQ 03/07/17 16:00 (Narcan Inj) 0.4 mg UNSCH PRN IV 03/07/17 15:15 (Almita-Colace) 1 tab BID PO 03/07/17 21:00 (Milk Of Magnesia Liq) 30 ml Q12H PRN PO 03/07/17 15:15 (Senokot) 17.2 mg Q12H PRN PO 03/07/17 15:15 (Dulcolax Supp) 10 mg DAILY PRN RECTAL 03/07/17 15:15 (Lactulose Liq) 30 ml DAILY PRN PO 03/07/17 15:15 Reported Meds & Active Scripts Active Reported Lisinopril-Hctz 20-12.5 Mg Tab 1 Tab PO DAILY Family History Noncontributory Social History The patient denies tobacco use. He uses alcohol moderately. 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 Physical Exam Vital Signs Vital Signs Date Time Temp Pulse Resp B/P Pulse Ox O2 Delivery O2 Flow Rate FiO2 03/07/17 15:03 95 14 155/94 99 03/07/17 14:15 88 14 164/97 99 03/07/17 14:00 84 14 176/91 100 03/07/17 13:40 Nasal Cannula 2 03/07/17 13:40 98.1 80 14 172/98 98 03/07/17 13:17 78 18 162/93 98 Nasal Cannula 3 03/07/17 13:09 97.9 82 18 157/90 100 Nasal Cannula 3 03/07/17 13:00 76 18 170/95 99 Nasal Cannula 3 03/07/17 12:50 80 22 201/95 100 Nasal Cannula 3 03/07/17 12:49 99 3.00 03/07/17 12:49 99 03/07/17 12:35 96 20 205/97 100 Nasal Cannula 3 03/07/17 12:00 81 22 194/95 96 Room Air Laboratory Laboratory Tests Test 03/07/17 11:57 White Blood Count 9.8 Red Blood Count 4.82 Hemoglobin 15.5 Bedside Hemoglobin 15.3 Hematocrit 44.2 Bedside Hematocrit 45.0 Mean Corpuscular Volume 91.8 Mean Corpuscular Hemoglobin 32.2 Mean Corpuscular Hemoglobin 35.1 Concent Red Cell Distribution Width 13.3 Platelet Count 205 Mean Platelet Volume 9.8 Neutrophils (%) (Auto) 57.6 Lymphocytes (%) (Auto) 31.9 Monocytes (%) (Auto) 8.8 Eosinophils (%) (Auto) 0.8 Basophils (%) (Auto) 0.9 Neutrophils # (Auto) 5.6 Lymphocytes # (Auto) 3.1 Monocytes # (Auto) 0.9 Eosinophils # (Auto) 0.1 Basophils # (Auto) 0.1 CBC Comment DIFF FINAL Differential Comment Prothrombin Time 11.4 Prothromb Time International 1.0 Ratio Activated Partial 21.6 Thromboplast Time Bedside Sodium 140 Bedside Potassium 3.7 Bedside Chloride 105 Bedside Blood Urea Nitrogen 16 Bedside Creatinine 1.0 Bedside Glucose 119 Ethyl Alcohol Level LESS THAN 3 Blood Type B POSITIVE Antibody Screen NEGATIVE Result Diagram: 03/07/17 1157 Imaging Last [address] 03/07/17 1154 Signed Impressions: Service Date/Time: Tuesday, March 07, 2017 13:20 - CONCLUSION: Left upper lobe nodule, repeat noncontrast chest CT is suggested in 6 months as a conservative follow up. Sandra Zamora MD Abdomen/Pelvis CT 03/07/17 1153 Signed Impressions: Service Date/Time: Tuesday, March 07, 2017 13:17 - CONCLUSION: Essentially unremarkable study. Sandra Zamora MD Tibia/Fibula X-Ray 03/07/17 1147 Signed Impressions: Service Date/Time: Tuesday, March 07, 2017 12:00 - CONCLUSION: Proximal fibula and tibia fractures. Sandra Zamora MD Head CT 03/07/17 1147 Signed Impressions: Service Date/Time: Tuesday, March 07, 2017 13:07 - CONCLUSION: No acute disease. No evidence of acute hemorrhage, edema or contusion. Unremarkable evaluation of the brain. Shyam Rey MD Cervical Spine CT 03/07/17 1147 Signed Impressions: Service Date/Time: Tuesday, March 07, 2017 13:12 - CONCLUSION: Slight neuroforaminal compromise left C5-C6, right C6-C7. Sandra Zamora MD Tibia/Fibula X-Ray 03/07/17 0000 Signed Impressions: Service Date/Time: Tuesday, March 07, 2017 13:31 - CONCLUSION: Gross anatomical alignment of intra-articular tibial fracture and there is also a fracture of proximal fibula. Sandra Zamora MD Shoulder X-Ray 03/07/17 0000 Signed Impressions: Service Date/Time: Tuesday, March 07, 2017 12:12 - CONCLUSION: No acute disease. Shyam Rey MD Assessment & Plan Problem List: (1) Type III open fracture of proximal end of left tibia and fibula (2) Hypertension Assessment and Plan The findings were discussed. Based upon the open fracture and the displaced, unstable fracture recommendations given for irrigation and debridement with possible internal versus external fixation. The nature of the planned surgical procedure, the risks, expected benefits, as well as the postoperative expectations have been discussed with him in detail. In addition, the alternatives to treatment and risks of same were discussed. The increased risk of infection related to the open injury and its implications were discussed. The patient acknowledges full understanding and consents to it. Adrien Cruz MD Mar 07, 2017 19:28
[2017-03-07] MEDS ORDERED: DO NOT ADM ANY ANTICOAGULANT DRUGS PRN (19:35)
[2017-03-07] MEDS ORDERED: *MEPERIDINE 25 MG INJ VIAL PERIprocedural Use ONLY ONE (19:38)
--- NOTE | 2017-03-07 19:40 | PD.OP ---
cc: Adrien Cruz MD Operative Report Date of Surgery: Mar 07, 2017 Preoperative Diagnosis: (1) Type III open fracture of proximal end of left tibia and fibula Postoperative Diagnosis: (1) Type III open fracture of proximal end of left tibia and fibula (2) Avulsion of left patellar tendon Procedure: Irrigation and debridement with open reduction internal fixation open left tibia and fibula fractures with patella tendon repair and bone grafting Implants: Synthes, Arthrex Anesthesia: Gen. Surgeon: Adrien Cruz Telephone Exchange Operator(s): Jayleen Lee PA-C (Ashley) The surgical procedure was assisted by my physician's registered sales assistant. Her presence was necessary throughout the case for manipulation and positioning of the surgical extremity. My PA was assisting me throughout the duration of this procedure. The skill set of the physician registered sales assistant was medically necessary to complete this procedure. During the surgical case the surgical elastic knitter hand frame was working at the back table and the physician registered sales assistant was directly assisting me. Operation and Findings: Indications: This 51-year-old male injured his left lower extremity earlier today when a ladder fell over while he was painting. He hit the ground with the latter. He presented to [facility]. He had a large laceration over the anterior aspect of the proximal lower leg with a comminuted displaced proximal tibia and fibula fracture. This is consistent with a grade 3 open fracture and he is taken to surgery for management. Procedure and findings: The patient was taken to the operative suite and after undergoing an adequate level of general anesthesia was kept supine on the operating table. Preoperative antibiotics consisted of Ancef 2 g IV and gentamicin 80 mg IV. The left lower extremity splint was removed. The patient had a significant soft tissue laceration over the anterior aspect of the tibial tubercle. It was transverse in nature. It was approximately 10-12 cm in length. There was exposed fracture. The left lower extend it was then prepped and draped in usual sterile fashion with alcohol Hibiclens. The fracture site was evaluated. There was no contamination. There was a large defect in the proximal tibia. Manipulation of the fracture into a reduced position was accomplished. The shaft of the tibia was displaced posteriorly and proximally was some difficulty reducing it underneath the plateau. The knee joint was noted to be relatively spared other than a small displaced lateral plateau fracture involvement. The wound was thoroughly irrigated with pulse lavage. Small amount of necrotic tissue and skin edges were debrided sharply. After the fracture was reduced with the main fragments medially a medial tibial plate was applied. Proximal fixation was accomplished from the medial plateau to the lateral plateau reducing the lateral fragment. Distal fixation was accomplished fixating the main fragments. The position was checked in both the AP and lateral planes with the C-arm. Distal locking and free cancellus screws were placed in the proximal aspect. Distal fixation was accomplished with some screws through the traumatic wound and some percutaneously. The patient was noted to have an evulsion of the patellar tendon from the tubercle. There is only a 1 cm piece of bone with it. The lateral plateau fragment was fixed with a free screw and a small anti-glide plate. A reconstruction plate was contoured and applied and screws placed. The patellar tendon was fixed with both bone anchors and a transosseous post with sutures. A whipstitch was placed into the tendon with #5 Tycron. The anchors were then placed on the medial and lateral aspects of the proximal tibia. A 4.5 screw was then placed from the tibial tubercle from anterior to posterior. The tendon was then pulled down and tied to the post and the screws seated. The 4 limbs of each anchor were then laced into the tendon and sutures tied. This gave a good repair. The wound was again thoroughly irrigated with pulse lavage. A large bony defect in the proximal aspect of the tibia was filled with allograft cancellus chips and Norian calcium phosphate filler. The position of the fracture reduction and placement of the internal fixation were checked in both the AP and lateral planes with the C-arm. The wound was again irrigated. It was a closed in layers utilizing #1 Vicryl suture on the muscular fascia, 2-0 Vicryl suture and the subcutaneous tense tissue and 2-0 nylon on the skin. Sterile dressings were applied, the patient was placed into a knee immobilizer, awakened, transferred to hospital bed and taken to the recovery room in stable condition. Estimated blood loss: 300 cc Complications: None Tourniquet time: 120 minutes Adrien Cruz MD Mar 07, 2017 19:40
[2017-03-07] MEDS ORDERED: ALUMINUM/MAGNESIUM/SIMETH 30 ML CUP PO PRN (19:45)
[2017-03-07] MEDS ORDERED: MORPHINE SULFATE 8 MG/ML INJ IV PUSH PRN (19:45)
[2017-03-07] MEDS ORDERED: MISCELLANEOUS NURSING INFORMATION XX PRN (19:45)
[2017-03-07] MEDS ORDERED: GENTAMICIN SULFATE 80 MG/2 ML VIAL IM SCH (19:45)
[2017-03-07] MEDS ORDERED: diphenhydrAMINE HCL 25 MG CAP PO PRN (19:45)
[2017-03-07] MEDS ORDERED: Post-op Orders (for Pharmacy) MISC XX ONE (19:45)
[2017-03-07] MEDS ORDERED: MISCELLANEOUS PHARMACY INFORMATION XX ONE (19:45)
[2017-03-07] MEDS ORDERED: POVIDONE IODINE 10% SOLN 118 ML BOTTLE TOPICAL PRN (19:45)
[2017-03-07] MEDS ORDERED: FAMOTIDINE 20 MG/2 ML VIAL ONE (19:46)
[2017-03-07] MEDS ORDERED: MIDAZOLAM HCL 2 MG/2 ML VIAL ONE (19:46)
[2017-03-07] MEDS ORDERED: MORPHINE SULFATE 4 MG/ML INJ ONE (19:47)
[2017-03-07] MEDS ORDERED: fentaNYL CITRATE 250 MCG/5 ML AMP ONE ×2 (19:47)
[2017-03-07] MEDS ORDERED: *morphine SULFATE 8 MG/ML PERIprocedure ONLY ONE (19:59)
[2017-03-07] MEDS: LACTATED RINGER'S 1000 ML INJ 1,000 ML IV SCH (20:05)
[2017-03-07] MEDS: SODIUM CHLORIDE 0.9% FLUSH 10 ML FLUSH IV FLUSH SCH (20:26)
[2017-03-07] MEDS ORDERED: TEMAZEPAM 15 MG CAP PO PRN (21:00)
[2017-03-07] MEDS ORDERED: SODIUM CHLORIDE 0.9% FLUSH 10 ML FLUSH IV FLUSH SCH (21:00)
[2017-03-07] MEDS ORDERED: DOCUSATE SODIUM 50 MG/SENNA 8.6 MG TAB PO SCH (21:00)
[2017-03-07] MEDS: ceFAZolin 2 GM PREMIX 50 ML IV SCH (21:40)
[2017-03-07] MEDS: DOCUSATE SODIUM 50 MG/SENNA 8.6 MG TAB PO SCH (21:41)
[2017-03-07] MEDS: PCA - TOTAL MG MORPHINE DELIVERED PER SHIFT SCH (21:44)
[2017-03-07] MEDS: GENTAMICIN/SOD CHL 80 MG/100 ML IV SCH (23:59)
[2017-03-08] VITALS: BP 134/74; PULSE 92; RESP 18; TEMP 98.1; O2SAT 95
[2017-03-08] MEDS: ceFAZolin 2 GM PREMIX 50 ML IV SCH ×4 (02:41→20:13)
[2017-03-08] MEDS: MORPHINE SULFATE 30 MG/30 ML PCA IV SCH ×2 (02:47→12:28)
[2017-03-08 04:00] VITALS: BP 125/76; PULSE 82; RESP 18; TEMP 98.1; O2SAT 95
[2017-03-08 05:03] LABS: AUTOMATED NEUTROPHIL # 9.2 TH/MM3 (1.8-7.7); BASOPHIL % 0.1 % (0.0-2.0); HEMATOCRIT 37.8 % (39.0-51.0); HEMO FLAGS DIFF FINAL; LYMPH % 7.2 % (9.0-44.0); LYMPHOCYTE # 0.8 TH/MM3 (1.0-4.8); MEAN CELL VOLUME 92.2 FL (80.0-100.0); MEAN CORPUSCULAR HEMOGLOBIN 31.7 PG (27.0-34.0); MEAN CORPUSCULAR HGB CONC 34.3 % (32.0-36.0); MONO % 10.1 % (0.0-8.0); NEUT % 82.6 % (16.0-70.0); PLATELET COUNT 190 TH/MM3 (150-450); RED BLOOD COUNT 4.09 MIL/MM3 (4.50-5.90); RED CELL DISTRIBUTION WIDTH 12.8 % (11.6-17.2); WHITE BLOOD COUNT 11.1 TH/MM3 (4.0-11.0)
[2017-03-08 05:19] LABS: BICARBONATE 27.7 MEQ/L (21.0-32.0)
[2017-03-08] MEDS: PCA - TOTAL MG MORPHINE DELIVERED PER SHIFT SCH ×3 (06:00→20:21)
[2017-03-08 08:00] VITALS: BP 134/79; PULSE 76; RESP 18; TEMP 96.8; O2SAT 94
[2017-03-08] MEDS: GENTAMICIN/SOD CHL 80 MG/100 ML IV SCH ×3 (08:03→23:37)
[2017-03-08] MEDS: SODIUM CHLORIDE 0.9% FLUSH 10 ML FLUSH IV FLUSH SCH ×2 (08:04→20:20)
[2017-03-08] MEDS: DOCUSATE SODIUM 50 MG/SENNA 8.6 MG TAB PO SCH ×2 (08:04→20:12)
[2017-03-08] MEDS: RIVAROXABAN 10 MG TAB PO SCH (08:04)
--- NOTE | 2017-03-08 09:47 | PD.ORT.PN ---
Subjective Post Op Day #: 1 Subjective Remarks Irrigation and debridement with open reduction internal fixation open left tibia and fibula fractures with patella tendon repair and bone grafting Pt awake and alert accompanied by his . He admits to nausea this AM and difficulty eating. He has not gotten up from the bed yet. All questions answered. No other complaints. Objective Vitals Vital Signs Date Time Temp Pulse Resp B/P Pulse Ox O2 Delivery O2 Flow Rate FiO2 03/08/17 06:00 18 03/08/17 04:00 98.1 82 18 125/76 95 03/08/17 02:52 18 03/08/17 02:47 18 03/08/17 00:00 98.1 92 18 134/74 95 03/07/17 22:07 93 Nasal Cannula 3.00 03/07/17 21:44 18 03/07/17 21:00 98.9 83 16 157/93 95 03/07/17 20:43 74 19 144/82 95 Nasal Cannula 3 03/07/17 20:30 79 19 141/84 95 Nasal Cannula 3 03/07/17 20:15 84 17 146/87 95 Nasal Cannula 3 03/07/17 20:00 82 19 151/85 95 Nasal Cannula 3 03/07/17 19:45 98.8 84 14 158/82 94 Nasal Cannula 3 03/07/17 15:03 95 14 155/94 99 03/07/17 14:15 88 14 164/97 99 03/07/17 14:00 84 14 176/91 100 03/07/17 13:40 Nasal Cannula 2 03/07/17 13:40 98.1 80 14 172/98 98 03/07/17 13:17 78 18 162/93 98 Nasal Cannula 3 03/07/17 13:09 97.9 82 18 157/90 100 Nasal Cannula 3 03/07/17 13:00 76 18 170/95 99 Nasal Cannula 3 03/07/17 12:50 80 22 201/95 100 Nasal Cannula 3 03/07/17 12:49 99 3.00 03/07/17 12:49 99 03/07/17 12:35 96 20 205/97 100 Nasal Cannula 3 03/07/17 12:00 81 22 194/95 96 Room Air I/O 03/07/17 03/07/17 03/07/17 03/08/17 03/08/17 03/08/17 06:59 14:59 22:59 06:59 14:59 22:59 Intake Total 1994 ml 1287 ml Output Total 1070 ml 800 ml Balance 924 ml 487 ml Intake Oral 240 ml IV Total 194 ml 1047 ml Other 1800 ml Output Urine Total 680 ml 600 ml Drainage Total 90 ml 200 ml Estimated Blood Loss 300 ml # Bowel Movements 0 Result Diagram: 03/08/17 0429 03/08/17 0429 Other Results Laboratory Tests Test 03/07/17 11:57 Prothrombin Time 11.4 SEC (9.8-11.6) Prothromb Time International 1.0 RATIO Ratio Imaging Last Impressions Chest CT 03/07/17 1154 Signed Impressions: Service Date/Time: Tuesday, March 07, 2017 13:20 - CONCLUSION: Left upper lobe nodule, repeat noncontrast chest CT is suggested in 6 months as a conservative follow up. Sandra Zamora MD Abdomen/Pelvis CT 03/07/17 1153 Signed Impressions: Service Date/Time: Tuesday, March 07, 2017 13:17 - CONCLUSION: Essentially unremarkable study. Sandra Zamora MD Tibia/Fibula X-Ray 03/07/17 1147 Signed Impressions: Service Date/Time: Tuesday, March 07, 2017 12:00 - CONCLUSION: Proximal fibula and tibia fractures. Sandra Zamora MD Head CT 03/07/17 1147 Signed Impressions: Service Date/Time: Tuesday, March 07, 2017 13:07 - CONCLUSION: No acute disease. No evidence of acute hemorrhage, edema or contusion. Unremarkable evaluation of the brain. Shyam Rey MD Cervical Spine CT 03/07/17 1147 Signed Impressions: Service Date/Time: Tuesday, March 07, 2017 13:12 - CONCLUSION: Slight neuroforaminal compromise left C5-C6, right C6-C7. Sandra Zamora MD Shoulder X-Ray 03/07/17 0000 Signed Impressions: Service Date/Time: Tuesday, March 07, 2017 12:12 - CONCLUSION: No acute disease. Shyam Rey MD Knee X-Ray 03/07/17 0000 Signed Impressions: Service Date/Time: Tuesday, March 07, 2017 18:41 - CONCLUSION: Intact postsurgical changes for technique. Sandra Zamora MD Procedures Irrigation and debridement with open reduction internal fixation open left tibia and fibula fractures with patella tendon repair and bone grafting (03/07/17 ) Objective Remarks LLE: Dressing dry and intact. Brace in place. + drain. Tender to palpation with mild swelling around incision site. 1+ edema noted distally. Appropriate range of motion expected post operatively. Freely able to move distal digits. No calf pain. Negative Dominic's sign. Good cap refill. 2+ pedal pulses. Neurovascular intact. Assessment & Plan Ortho Post Op Day #: 1 Problem List: (1) Type III open fracture of proximal end of left tibia and fibula (2) Avulsion of left patellar tendon (3) Chest wall contusion (4) Contusion of shoulder, right (5) Fall (6) Hypertension Assessment and Plan Irrigation and debridement with open reduction internal fixation open left tibia and fibula fractures with patella tendon repair and bone grafting POD #1 Ortho status stable. Progress rehab - non w/b LLE. Work on gait training, ankle pumps, up to chair. CKS on at all times. Xarelto for DVT prophylaxis. Daily dressing changes starting POD #2 D/C drain when < 30cc output per shift. Continue pain management, zofran for nausea. Discharge planning - most likely home with [facility] tomorrow. Jayleen Lee Mar 08, 2017 09:47
--- NOTE | 2017-03-08 10:36 | HHI.HP ---
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 He was up between 15-20 feet, the ladder slipped and he went down with the ladder. He hit his right shoulder and his left leg. He did not hit his head. No loss of consciousness. He was brought into the emergency department at [facility]. He was found to have a fractured left proximal tibia with a large open laceration, no fracture involving the right shoulder. He was taken to surgery immediately by Dr. Nickerson. He was seen this morning by the undersigned in room 9647. His pain is reasonably well controlled. He is nonweightbearing on his left lower extremity. He also had some nausea this morning. He was seen in the presence of his family. His arrival blood pressure yesterday was 200 and has been normal since. Review of Systems Other As detailed above, 10 systems reviewed and otherwise negative. Past Family Social History Past Medical History Hypertension Overweight Cardiac catheterization many years ago, this was negative PVCs Past Surgical History Tonsillectomy as a child Reported Medications Reported Meds & Active Scripts Active Reported Lisinopril-Hctz 20-12.5 Mg Tab 1 Tab PO DAILY Allergies: Uncoded Allergies: no blood (Allergy, Severe, no blood products, 03/07/17) Family History Reviewed but noncontributory Social History He does not smoke, occasional alcohol, no illicit drug use Physical Exam Vital Signs Vital Signs Date Time Temp Pulse Resp B/P Pulse Ox O2 Delivery O2 Flow Rate FiO2 03/08/17 06:00 18 03/08/17 04:00 98.1 82 18 125/76 95 03/08/17 02:52 18 03/08/17 02:47 18 03/08/17 00:00 98.1 92 18 134/74 95 03/07/17 22:07 93 Nasal Cannula 3.00 03/07/17 21:44 18 03/07/17 21:00 98.9 83 16 157/93 95 03/07/17 20:43 74 19 144/82 95 Nasal Cannula 3 03/07/17 20:30 79 19 141/84 95 Nasal Cannula 3 03/07/17 20:15 84 17 146/87 95 Nasal Cannula 3 03/07/17 20:00 82 19 151/85 95 Nasal Cannula 3 03/07/17 19:45 98.8 84 14 158/82 94 Nasal Cannula 3 03/07/17 15:03 95 14 155/94 99 03/07/17 14:15 88 14 164/97 99 03/07/17 14:00 84 14 176/91 100 03/07/17 13:40 Nasal Cannula 2 03/07/17 13:40 98.1 80 14 172/98 98 03/07/17 13:17 78 18 162/93 98 Nasal Cannula 3 03/07/17 13:09 97.9 82 18 157/90 100 Nasal Cannula 3 03/07/17 13:00 76 18 170/95 99 Nasal Cannula 3 03/07/17 12:50 80 22 201/95 100 Nasal Cannula 3 03/07/17 12:49 99 3.00 03/07/17 12:49 99 03/07/17 12:35 96 20 205/97 100 Nasal Cannula 3 03/07/17 12:00 81 22 194/95 96 Room Air Physical Exam GENERAL: This is a pleasant, overweight, well-developed patient, in mild distress. SKIN: No rashes, ecchymoses or lesions. Cool and dry. HEAD: Atraumatic. Normocephalic. No temporal or scalp tenderness. EYES: Pupils equal round and reactive. Extraocular motions intact. No scleral icterus. No injection or drainage. ENT: Nose without bleeding, purulent drainage or septal hematoma. Throat without erythema, tonsillar hypertrophy or exudate. Uvula midline. Airway patent. NECK: Trachea midline. No JVD or lymphadenopathy. Supple, nontender, no meningeal signs. CARDIOVASCULAR: Regular rate and rhythm without murmurs, gallops, or rubs. RESPIRATORY: Clear to auscultation. Breath sounds equal bilaterally. No wheezes , rales, or rhonchi. GASTROINTESTINAL: Abdomen soft, non-tender, nondistended. No hepato-splenomegaly , or palpable masses. No guarding. MUSCULOSKELETAL: Left lower extremity and surgical dressings with a drain in place NEUROLOGICAL: Awake and alert. Cranial nerves II through XII intact. Normal speech. Laboratory Laboratory Tests Test 03/07/17 03/08/17 11:57 04:29 White Blood Count 9.8 11.1 Red Blood Count 4.82 4.09 Hemoglobin 15.5 13.0 Bedside Hemoglobin 15.3 Hematocrit 44.2 37.8 Bedside Hematocrit 45.0 Mean Corpuscular Volume 91.8 92.2 Mean Corpuscular Hemoglobin 32.2 31.7 Mean Corpuscular Hemoglobin 35.1 34.3 Concent Red Cell Distribution Width 13.3 12.8 Platelet Count 205 190 Mean Platelet Volume 9.8 10.0 Neutrophils (%) (Auto) 57.6 82.6 Lymphocytes (%) (Auto) 31.9 7.2 Monocytes (%) (Auto) 8.8 10.1 Eosinophils (%) (Auto) 0.8 0.0 Basophils (%) (Auto) 0.9 0.1 Neutrophils # (Auto) 5.6 9.2 Lymphocytes # (Auto) 3.1 0.8 Monocytes # (Auto) 0.9 1.1 Eosinophils # (Auto) 0.1 0.0 Basophils # (Auto) 0.1 0.0 CBC Comment DIFF FINAL DIFF FINAL Differential Comment Prothrombin Time 11.4 Prothromb Time International 1.0 Ratio Activated Partial 21.6 Thromboplast Time Bedside Sodium 140 Bedside Potassium 3.7 Bedside Chloride 105 Bedside Blood Urea Nitrogen 16 Bedside Creatinine 1.0 Bedside Glucose 119 Ethyl Alcohol Level LESS THAN 3 Blood Type B POSITIVE Antibody Screen NEGATIVE Sodium Level 137 Potassium Level 4.0 Chloride Level 103 Carbon Dioxide Level 27.7 Anion Gap 6 Blood Urea Nitrogen 12 Creatinine 1.01 Estimat Glomerular Filtration 77 Rate Random Glucose 128 Calcium Level 8.1 Result Diagram: 03/08/17 0429 03/08/17 0429 Assessment and Plan Assessment and Plan Assessment Open fracture proximal left tibia and fibula Status post surgery for the above on 03/08/17 Overweight Hypertension Management Postoperative wound care per orthopedics Pain control Nausea control DVT prophylaxis Bowel regimen Blood pressure control Follow labs Discussed with patient and family Discussed with nurse 35 minutes Kalpesh Casiano MD Mar 08, 2017 10:36
[2017-03-08] MEDS: LACTATED RINGER'S 1000 ML INJ 1,000 ML IV SCH ×2 (11:40→20:20)
[2017-03-08 12:00] VITALS: BP 128/82; PULSE 84; RESP 18; TEMP 96.5; O2SAT 94
--- NOTE | 2017-03-08 12:42 | EKG ---
Date Performed: 03/07/2017 Time Performed: 12:06:03 PTAGE: 51 years EKG: Sinus rhythm NONSPECIFIC T-WAVE ABNORMALITY BORDERLINE ECG NO PREVIOUS TRACING DOCTOR: Nas Hill Interpretating Date/Time 03/08/2017 12:35:11
[2017-03-08 16:00] VITALS: BP 141/69; PULSE 83; RESP 18; TEMP 96.6; O2SAT 94
[2017-03-08 20:00] VITALS: BP 137/74; PULSE 91; RESP 18; TEMP 98; O2SAT 95
[2017-03-08] MEDS: MULTIVITAMINS/MINERALS THERAPEUTIC TAB PO SCH (20:12)
[2017-03-09] VITALS (7 sets, daily range): BP systolic 107–135; BP diastolic 56–79; PULSE 73–85; RESP 16–18; TEMP 97.7–99.1; O2SAT 93–96
[2017-03-09] MEDS: ceFAZolin 2 GM PREMIX 50 ML IV SCH (02:36)
[2017-03-09] MEDS: LACTATED RINGER'S 1000 ML INJ 1,000 ML IV SCH ×3 (03:40→14:01)
[2017-03-09] MEDS: PCA - TOTAL MG MORPHINE DELIVERED PER SHIFT SCH ×2 (06:00→10:23)
--- NOTE | 2017-03-09 07:10 | PD.ORT.PN ---
Subjective Post Op Day #: 2 Pain Scale: 6 Subjective Remarks The patient is awake and alert and answers questions appropriately. He complains of left knee pain but also right shoulder and chest wall pain. He had difficulty with use of the walker secondary to this. He denies shortness of breath, cough, palpitations or pain at rest. Objective Vitals Vital Signs Date Time Temp Pulse Resp B/P Pulse Ox O2 Delivery O2 Flow Rate FiO2 03/09/17 06:00 18 03/09/17 04:00 99.1 83 18 135/79 95 03/09/17 00:00 99.0 84 16 125/71 95 03/08/17 20:21 18 03/08/17 20:00 98.0 91 18 137/74 95 03/08/17 16:00 96.6 83 18 141/69 94 03/08/17 12:00 96.5 84 18 128/82 94 03/08/17 08:00 96.8 76 18 134/79 94 I/O 03/08/17 03/08/17 03/08/17 03/09/17 03/09/17 03/09/17 06:59 14:59 22:59 06:59 14:59 22:59 Intake Total 1287 ml 1895 ml 480 ml 480 ml Output Total 800 ml 140 ml 600 ml 600 ml Balance 487 ml 1755 ml -120 ml -120 ml Intake Oral 240 ml 960 ml 480 ml 480 ml IV Total 1047 ml 935 ml Output Urine Total 600 ml 600 ml 600 ml Drainage Total 200 ml 140 ml # Voids 3 # Bowel Movements 0 0 0 0 Result Diagram: 03/08/17 0429 03/08/17 0429 Imaging Last Impressions Chest CT 03/07/17 1154 Signed Impressions: Service Date/Time: Tuesday, March 07, 2017 13:20 - CONCLUSION: Left upper lobe nodule, repeat noncontrast chest CT is suggested in 6 months as a conservative follow up. Sandra Zamora MD Abdomen/Pelvis CT 03/07/17 1153 Signed Impressions: Service Date/Time: Tuesday, March 07, 2017 13:17 - CONCLUSION: Essentially unremarkable study. Sandra Zamora MD Tibia/Fibula X-Ray 03/07/17 1146 Signed Impressions: Service Date/Time: Tuesday, March 07, 2017 12:00 - CONCLUSION: Proximal fibula and tibia fractures. Sandra Zamora MD Head CT 03/07/17 1147 Signed Impressions: Service Date/Time: Tuesday, March 07, 2017 13:07 - CONCLUSION: No acute disease. No evidence of acute hemorrhage, edema or contusion. Unremarkable evaluation of the brain. Shyam Rey MD Cervical Spine CT 03/07/17 1147 Signed Impressions: Service Date/Time: Tuesday, March 07, 2017 13:12 - CONCLUSION: Slight neuroforaminal compromise left C5-C6, right C6-C7. Sandra Zamora MD Shoulder X-Ray 03/07/17 0000 Signed Impressions: Service Date/Time: Tuesday, March 07, 2017 12:12 - CONCLUSION: No acute disease. Shyam Rey MD Knee X-Ray 03/07/17 0000 Signed Impressions: Service Date/Time: Tuesday, March 07, 2017 18:41 - CONCLUSION: Intact postsurgical changes for technique. Sandra Zamora MD Procedures Irrigation and debridement with open reduction internal fixation open left tibia and fibula fractures with patella tendon repair and bone grafting (03/07/17 ) Objective Remarks LLE: Dressing dry and intact. Brace in place. + drain. Tender to palpation with mild swelling around incision site. 1+ edema noted distally. Appropriate range of motion expected post operatively. Freely able to move distal digits. No calf pain. Negative Dominic's sign. Good cap refill. 2+ pedal pulses. Neurovascular intact. He has a minimally restricted range of motion of the right shoulder with associated pain. He has 5 out of 5 resistance to supraspinatus testing. Assessment & Plan Ortho Post Op Day #: 2 Problem List: (1) Type III open fracture of proximal end of left tibia and fibula (2) Avulsion of left patellar tendon (3) Chest wall contusion (4) Contusion of shoulder, right (5) Fall (6) Hypertension Assessment and Plan Irrigation and debridement with open reduction internal fixation open left tibia and fibula fractures with patella tendon repair and bone grafting POD #2 Ortho status stable. Progress rehab - non w/b LLE. Work on gait training, ankle pumps, up to chair. CKS on at all times. Xarelto for DVT prophylaxis. Daily dressing changes starting POD #2 D/C drain when < 30cc output per shift. Continue pain management, zofran for nausea. 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 He'll therefore progress range of motion exercises. If his symptoms do not improve over reasonable period of time MRI will be completed on outpatient basis. Will add Toradol for pain. Adrien Cruz MD Mar 09, 2017 07:10
[2017-03-09] MEDS: HYDROCHLOROTHIAZIDE 12.5 MG CAP PO SCH (08:38)
[2017-03-09] MEDS: GENTAMICIN/SOD CHL 80 MG/100 ML IV SCH ×2 (08:38→16:01)
[2017-03-09] MEDS: LISINOPRIL 20 MG TAB PO SCH (08:38)
[2017-03-09] MEDS: KETOROLAC TROMETHAMINE 10 MG TAB PO PRN ×3 (08:39→22:37)
[2017-03-09] MEDS: SODIUM CHLORIDE 0.9% FLUSH 10 ML FLUSH IV FLUSH SCH ×2 (08:39→21:00)
[2017-03-09] MEDS: DOCUSATE SODIUM 50 MG/SENNA 8.6 MG TAB PO SCH ×2 (08:39→22:17)
[2017-03-09] MEDS: RIVAROXABAN 10 MG TAB PO SCH (08:39)
[2017-03-09] MEDS: MULTIVITAMINS/MINERALS THERAPEUTIC TAB PO SCH ×2 (08:39→22:17)
[2017-03-09 09:19] LABS: AUTOMATED NEUTROPHIL # 6.6 TH/MM3 (1.8-7.7); BASOPHIL % 0.5 % (0.0-2.0); EOSINOPHIL # 0.1 TH/MM3 (0-0.4); EOSINOPHIL % 0.7 % (0.0-4.0); HEMATOCRIT 33.8 % (39.0-51.0); HEMO FLAGS DIFF FINAL; LYMPH % 22.3 % (9.0-44.0); LYMPHOCYTE # 2.2 TH/MM3 (1.0-4.8); MEAN CORPUSCULAR HEMOGLOBIN 32.2 PG (27.0-34.0); MEAN CORPUSCULAR HGB CONC 34.6 % (32.0-36.0); MONO % 10.9 % (0.0-8.0); NEUT % 65.6 % (16.0-70.0); PLATELET COUNT 170 TH/MM3 (150-450); RED BLOOD COUNT 3.64 MIL/MM3 (4.50-5.90)
[2017-03-09] MEDS: oxyCODONE/ACETAMINOPHEN 5 MG/325 MG TAB PO PRN ×2 (10:25→13:55)
[2017-03-09] MEDS: MORPHINE SULFATE 30 MG/30 ML PCA IV SCH ×2 (10:27→17:36)
[2017-03-09 11:25] LABS: ANION GAP 8 MEQ/L (5-15); BICARBONATE 29.3 MEQ/L (21.0-32.0); BLOOD UREA NITROGEN 10 MG/DL (7-18); CHLORIDE 101 MEQ/L (98-107); GLOMERULAR FILTRATION RATE 88 ML/MIN (>89); POTASSIUM 3.6 MEQ/L (3.5-5.1); SODIUM (NA) 138 MEQ/L (136-145)
--- NOTE | 2017-03-09 15:49 | HHI.FF ---
Face to Face Verification Diagnosis: (1) Type III open fracture of proximal end of left tibia and fibula (2) Fall (3) Chest wall contusion (4) Contusion of shoulder, right (5) Hypertension Physical Therapy Order: Evaluate and Treat Instructions: non w/b LLE, CKS, no active flexion/extension, focus on quad strengthening, gait training. Home Health Nursing Order: Medical education Signs/symptoms of disease process Nursing assessment with vital signs I have seen patient Tonio Sandoval on 03/09/17. My clinical findings support the need for the requested home health care services because: High risk of falls I certify that my clinical findings support that this patient is homebound because: Unsteady gait/balance strict non w/b LLE, CKS on, no active flexion, focus on quad strength, gait training. Daily dressing changes RN to d/c sutures 03/17/17 Sigrid Waite Mar 09, 2017 15:49 Jayleen Lee Mar 11, 2017 08:14
--- NOTE | 2017-03-09 16:04 | HHI.PR ---
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 No BM Passing gas No chest pain No shortness of breath No fever Family at bedside (Sigrid Waite) Review of Systems Constitutional Constitutional Remarks 12 point review of systems completed, negative except as noted above (Sigrid Waite) Vitals/Results Intake & Output 03/08/17 03/08/17 03/09/17 15:00 23:00 07:00 Intake Total 1895 ml 732 ml 917 ml Output Total 140 ml 610 ml 610 ml Balance 1755 ml 122 ml 307 ml Intake Oral 960 ml 480 ml 480 ml IV Total 935 ml 252 ml 437 ml Output Urine Total 600 ml 600 ml Drainage Total 140 ml 10 ml 10 ml # Voids 3 # Bowel Movements 0 0 0 Vital Signs Vital Signs Date Time Temp Pulse Resp B/P Pulse Ox O2 Delivery O2 Flow Rate FiO2 03/09/17 11:47 98.3 76 18 131/79 93 03/09/17 07:38 97.7 85 18 124/69 94 03/09/17 06:00 18 03/09/17 04:00 99.1 83 18 135/79 95 03/09/17 00:00 99.0 84 16 125/71 95 03/08/17 20:21 18 03/08/17 20:00 98.0 91 18 137/74 95 (Sigrid Waite) CBC/BMP: 03/09/17 0838 03/09/17 0838 Lab Results Laboratory Tests Test 03/09/17 08:38 White Blood Count 10.0 TH/MM3 Red Blood Count 3.64 MIL/MM3 Hemoglobin 11.7 GM/DL Hematocrit 33.8 % Mean Corpuscular Volume 93.0 FL Mean Corpuscular Hemoglobin 32.2 PG Mean Corpuscular Hemoglobin 34.6 % Concent Red Cell Distribution Width 13.0 % Platelet Count 170 TH/MM3 Mean Platelet Volume 9.7 FL Neutrophils (%) (Auto) 65.6 % Lymphocytes (%) (Auto) 22.3 % Monocytes (%) (Auto) 10.9 % Eosinophils (%) (Auto) 0.7 % Basophils (%) (Auto) 0.5 % Neutrophils # (Auto) 6.6 TH/MM3 Lymphocytes # (Auto) 2.2 TH/MM3 Monocytes # (Auto) 1.1 TH/MM3 Eosinophils # (Auto) 0.1 TH/MM3 Basophils # (Auto) 0.0 TH/MM3 CBC Comment DIFF FINAL Differential Comment Sodium Level 138 MEQ/L Potassium Level 3.6 MEQ/L Chloride Level 101 MEQ/L Carbon Dioxide Level 29.3 MEQ/L Anion Gap 8 MEQ/L Blood Urea Nitrogen 10 MG/DL Creatinine 0.90 MG/DL Estimat Glomerular Filtration 88 ML/MIN Rate Random Glucose 100 MG/DL Calcium Level 8.3 MG/DL (Sigrid Waite. ARC WELDER APPRENTICE) Physical Exam General General Appearance: Well Developed, Well Nourished, No Acute Distress, Comfortable (Sigrid Waite. ARC WELDER APPRENTICE) Eyes Eye Exam: Pupils Equal, Pupils Reactive (Sigrid Waite ARC WELDER APPRENTICE) Ears & Nose Ears & Nose Exam: Nasal Mucosa [place] (Sigrid Waite ARC WELDER APPRENTICE) Throat Throat Exam: Oral Mucosa [place] & Moist (Sigrid Waite ARC WELDER APPRENTICE) Neck Neck Exam: Neck Supple, Trachea Midline (Sigrid Waite ARC WELDER APPRENTICE) Pulmonary Resp Exam: Clear Bilaterally (Sigrid Waite ARC WELDER APPRENTICE) Cardiology CV Exam: Regular, Good Perfusion (Sigrid Waite ARC WELDER APPRENTICE) Gastrointestinal/Abdomen GI Exam: Soft, Non-Tender, Bowel Sounds Present, Non-Distended (Sigrid Waite ARC WELDER APPRENTICE) Musculoskeletal MS Exam: Joints Intact MS Remarks Left leg in canvas splint, dressing in place, dry and intact right shoulder pain with ROM (Sigrid Waite ARC WELDER APPRENTICE) Integumentary Skin Exam: Warm, Dry (Sigrid Waite ARC WELDER APPRENTICE) Extremeties Extremities Exam: Pedal Pulses Palpable, Trace Edema (Sigrid Waite. ARC WELDER APPRENTICE) Neurologic Neuro Exam: Alert, Awake, Oriented, Speech Clear, Metal Wire Coating Operator Equal (Sigrid Waite. ARC WELDER APPRENTICE) Psychiatric Psych Exam: Appropriate Responses (Sigrid Waite ARC WELDER APPRENTICE) VTE Prophylaxis VTE Remarks Xarelto (Sigrid Waite GShilo ARC WELDER APPRENTICE) Assessment/Plan Problem List: (1) Type III open fracture of proximal end of left tibia and fibula (2) Hypertension (3) Avulsion of left patellar tendon (4) Fall (5) Chest wall contusion (6) Contusion of shoulder, right Assessment/Plan Assessment Status post fall Open fracture proximal left tibia and fibula S/P Irrigation and debridement with open reduction internal fixation open left tibia and fibula fractures with patella tendon repair and bone grafting 02/05 Overweight Hypertension Right shoulder pain/contusion Avulsion of left patellar tendon Incidental finding of left upper lobe nodule via CT of the chest Management Continue postoperative care per orthopedics Pain management 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 Hopefully DC PREFORMING MACHINE OPERATOR by morning Bowel regimen Antiemetics as needed Xarelto for DVT prophylaxis Continue with physical therapy as tolerated Blood pressure management, continue with home medications CT of the chest with findings of left upper lobe nodule, recommends follow up CT in 6 months H&H stable Case management consultation for discharge planning, ordered DME Continue with Xarelto for DVT prophylaxis Possible discharge tomorrow if okay with orthopedics Discussed with patient and family Discussed with RN Discussed with Dr. Casiano This patient was seen by myself and Dr. Casiano, this note is written on his behalf (Sigrid Waite) Assessment/Plan seen, examined by myself, Dr Casiano, today Discussed with patient Pain reasonably well controlled with PREFORMING MACHINE OPERATOR pump, possibly stop PREFORMING MACHINE OPERATOR in the morning Started physical therapy Discussed with nurse Discussed with mid level provider The exam, history, and the medical decision-making described in the above note were completed with the assistance of the mid-level provider. I reviewed the findings presented. I attest that I had a [id number] encounter with the patient on the same day, and personally performed and documented my assessment and findings in the medical record. (Kalpesh Casiano MD) Problem Qualifiers (1) Type III open fracture of proximal end of left tibia and fibula: Qualified Code: S82.102C - Type III open fracture of proximal end of left tibia and fibula, initial encounter (2) Hypertension: Qualified Code: I10 - Essential hypertension (3) Fall: Qualified Code: W19.XXXA - Fall, initial encounter (4) Chest wall contusion: Qualified Code: S20.211A - Chest wall contusion, right, initial encounter Sigrid Waite Mar 09, 2017 16:04 Kalpesh Casiano MD Mar 09, 2017 16:41
[2017-03-09] MEDS ORDERED: WALKER WHEELS/F1 MIS (16:08)
[2017-03-09] MEDS ORDERED: HOSP BED2 (16:08)
[2017-03-09] MEDS ORDERED: COMMODE 3-IN-11 MIS (16:08)
[2017-03-09 17:22] LABS: HEMOGLOBIN A1a 0.9 %; HEMOGLOBIN A1b 1.9 %; HEMOGLOBIN Ao 85.6 %; HEMOGLOBIN LA1C 1.9 %; HEMOGLOBIN P3 3.8 %
[2017-03-10] VITALS (7 sets, daily range): BP systolic 115–123; BP diastolic 67–75; PULSE 74–81; RESP 16–20; TEMP 96.3–98.7; O2SAT 92–96
[2017-03-10] MEDS: LACTATED RINGER'S 1000 ML INJ 1,000 ML IV SCH ×3 (04:39→19:40)
[2017-03-10] MEDS: KETOROLAC TROMETHAMINE 10 MG TAB PO PRN ×2 (06:25→15:03)
[2017-03-10] MEDS ORDERED: XARE10TA PO (07:22)
[2017-03-10] MEDS: LISINOPRIL 20 MG TAB PO SCH (09:00)
[2017-03-10] MEDS: HYDROCHLOROTHIAZIDE 12.5 MG CAP PO SCH (09:00)
--- NOTE | 2017-03-10 09:59 | HHI.PR ---
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 Offered rehab, both declined. Review of Systems Constitutional Constitutional Remarks 12 point review of systems completed, negative except as noted above Vitals/Results Intake & Output 03/09/17 03/09/17 03/10/17 14:59 22:59 06:59 Intake Total 960 ml 806 ml 480 ml Output Total 700 ml Balance 960 ml 806 ml -220 ml Intake Oral 960 ml 480 ml 480 ml IV Total 326 ml Output Urine Total 700 ml # Voids 4 1 # Bowel Movements 0 0 0 Vital Signs Vital Signs Date Time Temp Pulse Resp B/P Pulse Ox O2 Delivery O2 Flow Rate FiO2 03/10/17 08:00 98.7 77 20 121/67 94 03/10/17 06:00 18 03/10/17 00:55 96.5 79 16 118/67 92 03/09/17 22:00 18 03/09/17 20:03 98.6 82 17 107/56 94 03/09/17 20:00 Room Air 03/09/17 17:36 16 03/09/17 16:04 98.6 73 18 122/62 96 03/09/17 11:47 98.3 76 18 131/79 93 CBC/BMP: 03/09/17 0838 03/09/17 0838 Lab Results Laboratory Tests Test 03/09/17 21:41 Lab Scanned Report Lab Reports - Other [id number] Physical Exam General General Appearance: Well Developed, Well Nourished, No Acute Distress, Comfortable Eyes Eye Exam: Pupils Equal, Pupils Reactive Ears & Nose Ears & Nose Exam: Nasal Mucosa [place] Throat Throat Exam: Oral Mucosa [place] & Moist Neck Neck Exam: Neck Supple, Trachea Midline Pulmonary Resp Exam: Clear Bilaterally Cardiology CV Exam: Regular, Good Perfusion Gastrointestinal/Abdomen GI Exam: Soft, Non-Tender, Bowel Sounds Present, Non-Distended Musculoskeletal MS Exam: Joints Intact MS Remarks Left leg in canvas splint, dressing in place, dry and intact right shoulder pain with ROM Integumentary Skin Exam: Warm, Dry Extremeties Extremities Exam: Pedal Pulses Palpable, Trace Edema Neurologic Neuro Exam: Alert, Awake, Oriented, Speech Clear, Wraparound Facilitator Equal Psychiatric Psych Exam: Appropriate Responses VTE Prophylaxis VTE Remarks Xarelto Assessment/Plan Problem List: (1) Type III open fracture of proximal end of left tibia and fibula (2) Hypertension (3) Avulsion of left patellar tendon (4) Fall (5) Chest wall contusion (6) Contusion of shoulder, right Assessment/Plan Assessment Status post fall Open fracture proximal left tibia and fibula S/P Irrigation and debridement with open reduction internal fixation open left tibia and fibula fractures with patella tendon repair and bone grafting 02/05 Overweight Hypertension Right shoulder pain/contusion Avulsion of left patellar tendon Incidental finding of left upper lobe nodule via CT of the chest Management Continue postoperative care per orthopedics Pain management 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 DC TRAVELING ACCOUNTANT today Bowel regimen Antiemetics as needed Xarelto for DVT prophylaxis Continue with physical therapy as tolerated Blood pressure management, continue with home medications CT of the chest with findings of left upper lobe nodule, recommends follow up CT in 6 months H&H stable Continue with Xarelto for DVT prophylaxis Needs hospital bed for repositioning D/W CM, arranging [facility] Possible discharge today or tomorrow if okay with orthopedics Discussed with patient and family Discussed with RN Discussed with Dr. Casiano Discussed with CM This patient was seen by myself and Dr. Casiano, this note is written on his behalf Problem Qualifiers (1) Type III open fracture of proximal end of left tibia and fibula: Qualified Code: S82.102C - Type III open fracture of proximal end of left tibia and fibula, initial encounter (2) Hypertension: Qualified Code: I10 - Essential hypertension (3) Fall: Qualified Code: W19.XXXA - Fall, initial encounter (4) Chest wall contusion: Qualified Code: S20.211A - Chest wall contusion, right, initial encounter Sigrid Waite Mar 10, 2017 09:59
[2017-03-10] MEDS: MULTIVITAMINS/MINERALS THERAPEUTIC TAB PO SCH ×2 (10:44→20:08)
[2017-03-10] MEDS: DOCUSATE SODIUM 50 MG/SENNA 8.6 MG TAB PO SCH ×2 (10:44→20:08)
[2017-03-10] MEDS: SODIUM CHLORIDE 0.9% FLUSH 10 ML FLUSH IV FLUSH SCH ×2 (10:45→20:13)
[2017-03-10] MEDS: RIVAROXABAN 10 MG TAB PO SCH (10:51)
[2017-03-10] MEDS: oxyCODONE/ACETAMINOPHEN 5 MG/325 MG TAB PO PRN ×3 (11:07→21:43)
[2017-03-10] MEDS ORDERED: WHEEMIS3 (11:36)
--- NOTE | 2017-03-10 11:37 | HHI.DCPOC ---
Discharge Care Plan Diagnosis: (1) Type III open fracture of proximal end of left tibia and fibula Your Health Problems Are: Difficulty with ADL Skin Breakdown Inflammation Swelling Leg Swelling Goals to Promote Your Health * To prevent worsening of your condition and complications * To maintain your health at the optimal level Directions to Meet Your Goals Take your medications as prescribed Follow your dietary instruction Follow activity as directed Keep your appointments as scheduled Take your immunizations and boosters as scheduled If your symptoms worsen call your PCP, if no PCP go to Urgent Care Center or Emergency Room Smoking is Dangerous to Your Health. Avoid second hand smoke Call the 24-hour hour crisis hotline for domestic abuse at Sigrid Waite. [facility] Mar 10, 2017 11:37
--- NOTE | 2017-03-10 14:24 | PD.ORT.PN ---
Subjective Post Op Day #: 3 Subjective Remarks Irrigation and debridement with open reduction internal fixation open left tibia and fibula fractures with patella tendon repair and bone grafting Pt awake and alert accompanied by his . He states he has walked with PT but does not feel ready for discharge today. All questions answered. No other complaints. Objective Vitals Vital Signs Date Time Temp Pulse Resp B/P Pulse Ox O2 Delivery O2 Flow Rate FiO2 03/10/17 12:00 98.0 76 20 115/67 95 03/10/17 08:00 98.7 77 20 121/67 94 03/10/17 06:00 18 03/10/17 00:55 96.5 79 16 118/67 92 03/09/17 22:00 18 03/09/17 20:03 98.6 82 17 107/56 94 03/09/17 20:00 Room Air 03/09/17 17:36 16 03/09/17 16:04 98.6 73 18 122/62 96 I/O 03/09/17 03/09/17 03/09/17 03/10/17 03/10/17 03/10/17 07:00 15:00 23:00 07:00 15:00 23:00 Intake Total 917 ml 960 ml 806 ml 480 ml Output Total 610 ml 700 ml Balance 307 ml 960 ml 806 ml -220 ml Intake Oral 480 ml 960 ml 480 ml 480 ml IV Total 437 ml 326 ml Output Urine Total 600 ml 700 ml Drainage Total 10 ml # Voids 4 1 # Bowel Movements 0 0 0 0 Result Diagram: 03/09/17 0838 03/09/17 0838 Imaging Last Impressions Chest CT 03/07/17 1154 Signed Impressions: Service Date/Time: Tuesday, March 07, 2017 13:20 - CONCLUSION: Left upper lobe nodule, repeat noncontrast chest CT is suggested in 6 months as a conservative follow up. Sandra Zamora MD Abdomen/Pelvis CT 03/07/17 1153 Signed Impressions: Service Date/Time: Tuesday, March 07, 2017 13:17 - CONCLUSION: Essentially unremarkable study. Sandra Zamora MD Tibia/Fibula X-Ray 03/07/17 1147 Signed Impressions: Service Date/Time: Tuesday, March 07, 2017 12:00 - CONCLUSION: Proximal fibula and tibia fractures. Sandra Zamora MD Head CT 03/07/17 1147 Signed Impressions: Service Date/Time: Tuesday, March 07, 2017 13:07 - CONCLUSION: No acute disease. No evidence of acute hemorrhage, edema or contusion. Unremarkable evaluation of the brain. Shyam Rye MD Cervical Spine CT 03/07/17 1147 Signed Impressions: Service Date/Time: Tuesday, March 07, 2017 13:12 - CONCLUSION: Slight neuroforaminal compromise left C5-C6, right C6-C7. Sandra Zamora MD Shoulder X-Ray 03/07/17 0000 Signed Impressions: Service Date/Time: Tuesday, March 07, 2017 12:12 - CONCLUSION: No acute disease. Shyam Rey MD Knee X-Ray 03/07/17 0000 Signed Impressions: Service Date/Time: Tuesday, March 07, 2017 18:41 - CONCLUSION: Intact postsurgical changes for technique. Sandra Zamora MD Procedures Irrigation and debridement with open reduction internal fixation open left tibia and fibula fractures with patella tendon repair and bone grafting (03/07/17 ) Objective Remarks LLE: Dressing dry and intact. Brace in place. Tender to palpation with mild swelling around incision site. 1+ edema noted distally. Appropriate range of motion expected post operatively. Freely able to move distal digits. No calf pain. Negative Dominic's sign. Good cap refill. 2+ pedal pulses. Neurovascular intact. He has a minimally restricted range of motion of the right shoulder with associated pain. He has 5 out of 5 resistance to supraspinatus testing. Assessment & Plan Ortho Post Op Day #: 3 Problem List: (1) Type III open fracture of proximal end of left tibia and fibula (2) Avulsion of left patellar tendon (3) Chest wall contusion (4) Contusion of shoulder, right (5) Fall (6) Hypertension Assessment and Plan Irrigation and debridement with open reduction internal fixation open left tibia and fibula fractures with patella tendon repair and bone grafting POD #3 Ortho status stable. Progress rehab - non w/b LLE. Work on gait training, ankle pumps, up to chair. CKS on at all times. Xarelto for DVT prophylaxis. Daily dressing changes Continue pain management, zofran for nausea. Discussed the possibility of a MRI scan evaluation of the right shoulder however the present time I do not feel it would change advisor. He'll therefore progress range of motion exercises. If his symptoms do not improve over reasonable period of time MRI will be completed on outpatient basis. Will add Toradol for pain. Discharge planning Jayleen Lee Mar 10, 2017 14:24
--- NOTE | 2017-03-10 21:01 | RADRPT ---
EXAM DATE/TIME: 03/10/2017 20:33 [place] COMPARISON: CT THORAX W CONTRAST, March 07, 2017, 13:20. INDICATIONS : Right upper rib pain post fall from ladder four days again. MEDICAL HISTORY : None. SURGICAL HISTORY : None. ENCOUNTER: Initial ACUITY: 4 - 6 days PAIN SCORE: 7/10 LOCATION: Right upper chest pectoral region. FINDINGS: The lungs are clear. I do not see a fracture. Cardiomediastinal silhouette is normal. CONCLUSION: Unremarkable examination of the right ribs and chest. Kurt Munoz MD on March 10, 2017 at 20:58 Board Certified Radiologist. This report was verified electronically.
[2017-03-11 00:15] VITALS: BP 117/63; PULSE 70; RESP 16; TEMP 99.4; O2SAT 95
[2017-03-11] MEDS: LACTATED RINGER'S 1000 ML INJ 1,000 ML IV SCH ×2 (02:54→11:40)
[2017-03-11 07:05] VITALS: BP 117/57; PULSE 79; RESP 18; TEMP 97.9; O2SAT 93
[2017-03-11] MEDS: oxyCODONE/ACETAMINOPHEN 5 MG/325 MG TAB PO PRN ×3 (07:19→16:10)
--- NOTE | 2017-03-11 08:12 | PD.ORT.PN ---
Subjective Post Op Day #: 4 Subjective Remarks Irrigation and debridement with open reduction internal fixation open left tibia and fibula fractures with patella tendon repair and bone grafting Pt awake and alert, sitting upright in chair. He states his pain is tolerable and controlled, just took 2 pain pills. He feels ready for discharge today with home health care. All questions answered. No other complaints. Objective Vitals Vital Signs Date Time Temp Pulse Resp B/P Pulse Ox O2 Delivery O2 Flow Rate FiO2 03/11/17 00:15 99.4 70 16 117/63 95 03/10/17 20:10 97.0 74 16 121/69 95 03/10/17 16:00 96.3 81 20 123/75 96 03/10/17 14:00 18 03/10/17 12:00 98.0 76 20 115/67 95 I/O 03/10/17 03/10/17 03/10/17 03/11/17 03/11/17 03/11/17 07:00 15:00 23:00 07:00 15:00 23:00 Intake Total 480 ml 480 ml 780 ml 480 ml Output Total 700 ml 500 ml 250 ml 550 ml Balance -220 ml -20 ml 530 ml -70 ml Intake Oral 480 ml 480 ml 480 ml 480 ml IV Total 300 ml Output Urine Total 700 ml 500 ml 250 ml 550 ml # Bowel Movements 0 1 0 0 Result Diagram: 03/09/17 0838 03/09/17 0838 Imaging Last Impressions Chest CT 03/07/17 1154 Signed Impressions: Service Date/Time: Tuesday, March 07, 2017 13:20 - CONCLUSION: Left upper lobe nodule, repeat noncontrast chest CT is suggested in 6 months as a conservative follow up. Sandra Zamora MD Abdomen/Pelvis CT 03/07/17 1153 Signed Impressions: Service Date/Time: Tuesday, March 07, 2017 13:17 - CONCLUSION: Essentially unremarkable study. Sandra Zamora MD Tibia/Fibula X-Ray 03/07/17 1147 Signed Impressions: Service Date/Time: Tuesday, March 07, 2017 12:00 - CONCLUSION: Proximal fibula and tibia fractures. Sandra Zamora MD Head CT 03/07/17 1147 Signed Impressions: Service Date/Time: Tuesday, March 07, 2017 13:07 - CONCLUSION: No acute disease. No evidence of acute hemorrhage, edema or contusion. Unremarkable evaluation of the brain. Shyam Rey MD Cervical Spine CT 03/07/17 1147 Signed Impressions: Service Date/Time: Tuesday, March 07, 2017 13:12 - CONCLUSION: Slight neuroforaminal compromise left C5-C6, right C6-C7. Sandra Zamora MD Shoulder X-Ray 03/07/17 0000 Signed Impressions: Service Date/Time: Tuesday, March 07, 2017 12:12 - CONCLUSION: No acute disease. Shyam Rey MD Knee X-Ray 03/07/17 0000 Signed Impressions: Service Date/Time: Tuesday, March 07, 2017 18:41 - CONCLUSION: Intact postsurgical changes for technique. Sandra Zamora MD Procedures Irrigation and debridement with open reduction internal fixation open left tibia and fibula fractures with patella tendon repair and bone grafting (03/07/17 ) Objective Remarks LLE: Dressing dry and intact. Brace in place. knee effusion present. Tender to palpation with mild swelling around incision site. 1+ edema noted distally. Appropriate range of motion expected post operatively. Freely able to move distal digits. No calf pain. Negative Dominic's sign. Good cap refill. 2+ pedal pulses. Neurovascular intact. He has a minimally restricted range of motion of the right shoulder with associated pain. He has 5 out of 5 resistance to supraspinatus testing. Assessment & Plan Ortho Post Op Day #: 4 Problem List: (1) Type III open fracture of proximal end of left tibia and fibula (2) Avulsion of left patellar tendon (3) Chest wall contusion (4) Contusion of shoulder, right (5) Fall (6) Hypertension Assessment and Plan Irrigation and debridement with open reduction internal fixation open left tibia and fibula fractures with patella tendon repair and bone grafting POD #4 Ortho status stable. Progress rehab - non w/b LLE. Work on gait training, ankle pumps, up to chair. CKS on at all times. Xarelto for DVT prophylaxis. Daily dressing changes Continue pain management Clear for discharge from an orthopedic standpoint, most likely with [facility]. Would rec. BSC, wheelchair and walker. [facility] RN to d/c sutures 03/17/17 F/U with Dr. Cruz in 2-3 weeks. Jayleen Lee Mar 11, 2017 08:12
[2017-03-11] MEDS ORDERED: WALKER/ADULT/FO1 MIS (08:22)
[2017-03-11] MEDS: DOCUSATE SODIUM 50 MG/SENNA 8.6 MG TAB PO SCH (09:00)
[2017-03-11] MEDS: LISINOPRIL 20 MG TAB PO SCH (09:00)
[2017-03-11] MEDS: SODIUM CHLORIDE 0.9% FLUSH 10 ML FLUSH IV FLUSH SCH (09:00)
[2017-03-11] MEDS: MULTIVITAMINS/MINERALS THERAPEUTIC TAB PO SCH (09:00)
[2017-03-11] MEDS: HYDROCHLOROTHIAZIDE 12.5 MG CAP PO SCH (09:00)
[2017-03-11] MEDS: RIVAROXABAN 10 MG TAB PO SCH (09:00)
--- NOTE | 2017-03-11 10:18 | HHI.PR ---
Subjective Subjective Remarks C/O aching all over, increasing right shoulder pain when he puts pressure to use walker no limitations of ROM to right shoulder, able to abduct and bring above head anxious about going home, concerned about transportation had BM yesterday no cp no sob no fever at bsd Review of Systems Constitutional Constitutional Remarks 12 point review of systems completed, negative except as noted above Vitals/Results Intake & Output 03/10/17 03/10/17 03/11/17 15:00 23:00 07:00 Intake Total 480 ml 780 ml 480 ml Output Total 500 ml 250 ml 550 ml Balance -20 ml 530 ml -70 ml Intake Oral 480 ml 480 ml 480 ml IV Total 300 ml Output Urine Total 500 ml 250 ml 550 ml # Bowel Movements 1 0 0 Vital Signs Vital Signs Date Time Temp Pulse Resp B/P Pulse Ox O2 Delivery O2 Flow Rate FiO2 03/11/17 07:05 97.9 79 18 117/57 93 03/11/17 00:15 99.4 70 16 117/63 95 03/10/17 20:10 97.0 74 16 121/69 95 03/10/17 16:00 96.3 81 20 123/75 96 03/10/17 14:00 18 03/10/17 12:00 98.0 76 20 115/67 95 CBC/BMP: 03/09/17 0838 03/09/17 0838 Physical Exam General General Appearance: Well Developed, Well Nourished, No Acute Distress, Comfortable Eyes Eye Exam: Pupils Equal, Pupils Reactive Ears & Nose Ears & Nose Exam: Nasal Mucosa [place] Throat Throat Exam: Oral Mucosa [place] & Moist Neck Neck Exam: Neck Supple, Trachea Midline Pulmonary Resp Exam: Clear Bilaterally Cardiology CV Exam: Regular, Good Perfusion Gastrointestinal/Abdomen GI Exam: Soft, Non-Tender, Bowel Sounds Present, Non-Distended Musculoskeletal MS Exam: Joints Intact MS Remarks Left leg in canvas splint, dressing in place, dry and intact right shoulder pain with ROM Integumentary Skin Exam: Warm, Dry Extremeties Extremities Exam: Pedal Pulses Palpable, Trace Edema Neurologic Neuro Exam: Alert, Awake, Oriented, Speech Clear, Volleyball Assistant Coach Equal Psychiatric Psych Exam: Appropriate Responses VTE Prophylaxis VTE Remarks Xarelto Assessment/Plan Problem List: (1) Type III open fracture of proximal end of left tibia and fibula (2) Hypertension (3) Avulsion of left patellar tendon (4) Fall (5) Chest wall contusion (6) Contusion of shoulder, right Assessment/Plan Assessment Status post fall Open fracture proximal left tibia and fibula S/P Irrigation and debridement with open reduction internal fixation open left tibia and fibula fractures with patella tendon repair and bone grafting 02/05 Overweight Hypertension Right shoulder pain/contusion Avulsion of left patellar tendon Incidental finding of left upper lobe nodule via CT of the chest Management Continue postoperative care per orthopedics Pain management pain management, continue with Toradol and Percocet. Bowel regimen Antiemetics as needed Xarelto for DVT prophylaxis Continue with physical therapy as tolerated Blood pressure management, continue with home medications CT of the chest with findings of left upper lobe nodule, recommends follow up CT in 6 months H&H stable Continue with Xarelto for DVT prophylaxis Cleared for dc by [employer]. right shoulder pain, will check MRI rib series negative for acute findings Possible dc today after MRI results Discussed with patient and family Discussed with RN Discussed with Dr. Casiano Discussed with CM This patient was seen by myself and Dr. Casiano, this note is written on his behalf Problem Qualifiers (1) Type III open fracture of proximal end of left tibia and fibula: Qualified Code: S82.102C - Type III open fracture of proximal end of left tibia and fibula, initial encounter (2) Hypertension: Qualified Code: I10 - Essential hypertension (3) Fall: Qualified Code: W19.XXXA - Fall, initial encounter (4) Chest wall contusion: Qualified Code: S20.211A - Chest wall contusion, right, initial encounter Sigrid WaiteP Mar 11, 2017 10:18
[2017-03-11 11:46] VITALS: BP 118/65; PULSE 75; RESP 18; TEMP 96.1; O2SAT 94
[2017-03-11] MEDS ORDERED: OXYC1TAB63 PO (14:17)
[2017-03-11 15:35] VITALS: BP 127/66; PULSE 82; RESP 18; TEMP 98.5; O2SAT 97
--- NOTE | 2017-03-11 16:49 | HHI.DS ---
Discharge Summary Admission Date Mar 07, 2017 at 14:39 Discharge Date: Mar 11, 2017 Admitting Diagnosis Open Tib/Fib Fracture (1) Type III open fracture of proximal end of left tibia and fibula (2) Contusion of shoulder, right (3) Chest wall contusion (4) Fall (5) Avulsion of left patellar tendon (6) Hypertension CBC/BMP: 03/09/17 0838 03/09/17 0838 Significant Findings Laboratory Tests Test 03/09/17 08:38 Red Blood Count 3.64 MIL/MM3 (4.50-5.90) Hemoglobin 11.7 GM/DL (13.0-17.0) Hematocrit 33.8 % (39.0-51.0) Monocytes (%) (Auto) 10.9 % (0.0-8.0) Monocytes # (Auto) 1.1 TH/MM3 (0-0.9) Estimat Glomerular Filtration 88 ML/MIN (>89) Rate Calcium Level 8.3 MG/DL (8.5-10.1) Hospital Course 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 He was up between 15-20 feet, the ladder slipped and he went down with the ladder. He hit his right shoulder and his left leg. He did not hit his head. No loss of consciousness. He was brought into the emergency department at [facility]. He was found to have a fractured left proximal tibia with a large open laceration, no fracture involving the right shoulder. He was taken to surgery immediately by Dr. Nickerson.Post op his pain is reasonably well controlled. He is nonweightbearing on his left lower extremity. He also had some nausea post op. He was seen in the presence of his family. His arrival blood pressure yesterday was 200 and normalized after surgery. Pt. admitted for: Assessment Status post fall Open fracture proximal left tibia and fibula S/P Irrigation and debridement with open reduction internal fixation open left tibia and fibula fractures with patella tendon repair and bone grafting 02/05 Overweight Hypertension Right shoulder pain/contusion Avulsion of left patellar tendon Incidental finding of left upper lobe nodule via CT of the chest During the course of the hospitalization, the following took place: Orthopedics continued to follow patient. Postoperative orthopedic care was carried out Patient was put on appropriate pain management, initially [employer] a long with Toradol and Percocet. Bowel regimen Antiemetics as needed Xarelto for DVT prophylaxis Continue with physical therapy as tolerated Blood pressure management, continued with home medications CT of the chest with findings of left upper lobe nodule, recommended follow up CT in 6 months H&H stable Continued with Xarelto for DVT prophylaxis Cleared for dc by [employer]. right shoulder pain, ordered MRI. Patient did not want to weigh to have testing done. Indicated he wanted to do it as outpatient. rib series done, negative for acute findings CM consulted for discharge planning, home health care arranged. DME arranged per CM Patient had a stable postop course, had BM. Tolerated diet well. He worked with physical therapy Patient was discharged home in stable condition Pt Condition on Discharge: Stable Discharge Disposition: Disch w/ Home Health Serv Discharge Instructions DIET: Follow Instructions for: Heart Healthy Diet Activities you can perform: Non Weight Bearing Activities to Avoid: Lifting/Bending Follow up Referrals: Orthopedics - 1 Week @ [facility] with Adrien Cruz MD New Medications: Commode 3-in-1 (Commode 3-in-1) 1 Mis Mis 1 EA .ROUTE DIRECTED #1 Ref 0 EA Hospital Bed - Manual (Hospital Bed - Manual) 1 Ea Ea 1 EA .ROUTE DIRECTED #1 EA Walker with Front Wheels (Walker with Front Wheels) 1 Mis Mis 1 EA .ROUTE DIRECTED #1 Ref 0 EA Walker/Adult/Folding (Walker/Adult/Folding) 1 Mis Mis 1 EA .ROUTE DIRECTED #1 Ref 0 EA Wheelchair (Wheelchair) 1 Mis Mis 1 EA .ROUTE DIRECTED #1 Ref 0 EA Oxycodone-Acetaminophen (Oxycodone-Acetaminophen) 5-325 mg Tab 1 TAB PO Q4H PRN PAIN SCALE 1 TO 10 #30 TAB Rivaroxaban (Xarelto) 10 Mg Tab 10 MG PO Q24H Prevent Blood Clot #20 TAB Continued Medications: Lisinopril-Hctz (Lisinopril-Hctz) 20-12.5 Mg Tab 1 TAB PO DAILY Blood Pressure Management #0 Ref 0 TAB Sigrid Waite Mar 11, 2017 16:49
== END 2017-03-11 17:44 | disposition home health service (06) | DRG 494 ==
LOC: NEPE 11:39 → NEDA 14:39 → N06A 20:53
PROVIDERS: ADMIT Specialist; ATTEND Specialist
PROC: 0QUH0JZ Supplement Left Tibia with Synthetic Substitute, Open Approach (ICD-10-PCS; 2017-03-07)
PROC: 0QSHXZZ Reposition Left Tibia, External Approach (ICD-10-PCS; 2017-03-07)
PROC: 0QSH04Z Reposition Left Tibia with Internal Fixation Device, Open Approach (ICD-10-PCS; principal; 2017-03-07 15:04)
PROC: 0LQR0ZZ Repair Left Knee Tendon, Open Approach (ICD-10-PCS; 2017-03-07 15:04)
DX: S82.102 Unspecified fracture of upper end of left tibia (principal); I10 Essential (primary) hypertension; S82.832C Other fracture of upper and lower end of left fibula, initial encounter for open fracture type IIIA, IIIB, or IIIC; E66.3 Overweight; S76.192A Other specified injury of left quadriceps muscle, fascia and tendon, initial encounter; S20.211A Contusion of right front wall of thorax, initial encounter; S40.011A Contusion of right shoulder, initial encounter; E78.5 Hyperlipidemia, unspecified; R40.2410 Glasgow coma scale score 13-15, unspecified time; R91.1 Solitary pulmonary nodule; W11.XXXA Fall on and from ladder, initial encounter; Y93.H9 Activity, other involving exterior property and land maintenance, building and construction; Y92.018 Other place in single-family (private) house as the place of occurrence of the external cause; Z68.36 Body mass index [BMI] 36.0-36.9, adult
CPT/HCPCS: 27830; 70450; 71101; 71260; 72125; 73020; 73560; 73590; 74177; 76000; 80048; 80307; 82435; 82565; 82947; 83036; 84132; 84295; 84520; 85025; 85610; 85730; 86850; 86900; 86901; 90471; 90715; 93005; 94150; 96374; 96375; 99152; C1713; C1769; J0690; J1170; J1580; J2175; J2250; J2270; J2405; J2710; J3010; J7030; J7120; L1830; Q9967